=== PATIENT | male | born 1945 | race Caucasian/White ===

== ENCOUNTER 2021-03-25 14:26 | Outpatient (CLI) | payer MEDICARE, OTHER, SELFPAY | END 2021-03-25 14:27 | disposition home or self-care (01) | PROVIDERS: PCP Physician Assistant; Visit Provider Specialist | DX: L81.4 Other melanin hyperpigmentation (principal) | CPT/HCPCS: 88305; 88313; 88342 ==

== ENCOUNTER 2021-06-07 19:12 | Observation (INO) | payer MEDICARE, OTHER, SELFPAY ==
--- NOTE | ~2021-06-07 | XR_ITS ---
XR chest 1V portable 06/07/2021 19:43 Indication: Chest pain. History of atrial fibrillation. Procedure: AP portable chest Comparison: No prior studies for comparison. Findings: Cardiomegaly with mild interstitial edema. No pleural effusion. No pneumothorax. No acute o sseous abnormality. Impression: 1: Cardiomegaly with mild interstitial edema. Reviewed, dictated and finalized at location A. TENDER Impression: 1: Cardiomegaly with mild interstitial edema.
[2021-06-07 19:19] VITALS: BP 109/76; PULSE 135; RESP 24; TEMP 36.7; O2SAT 95
--- NOTE | 2021-06-07 19:32 | ECG_ITS ---
Measurements Intervals [place] Rate: 125 P: [place]: 0 QRS: -86 QRSD: 137 T: 60 QT: 350 QTc: 506 Interpretive Statements ATRIAL FIBRILLATION WITH RAPID VENTRICULAR RESPONSE RIGHT BUNDLE BRANCH BLOCK LEFT ANTERIOR FASCICULAR BLOCK BASELINE ARTIFACT- I, III, AVR, AVL, AVF, V2-V6 ABNORMAL ECG Electronically Signed On 06-08-2021 7:54:36 BOND WRITER by Andrés Yung D.O.
[2021-06-07] MEDS: dilTIAZem HCl INJ 25 MG/5 ML VIAL 20 MG IV PUSH (19:40)
[2021-06-07 19:58] LABS: Basophils Absolute Auto 0.1 K/mm3 (0.0-0.1); Basophils Percent Auto 0.8 % (0.2-1.2); Eosinophils Absolute Auto 0.2 K/mm3 (0-0.3); Eosinophils Percent Auto 1.7 % (0-4.4); Hemoglobin 16.5 g/dL (14.0-18.0); Immature Granulocyte Absolute 0.04 K/mm3 (0.00-0.031); Immature Granulocyte Percent A 0.4 % (0-0.5); Lymphocytes Absolute Auto 1.68 K/mm3 (0.9-3.2); Mean Corpuscular HGB Conc 34.4 g/dl (32-36); Mean Corpuscular Hemoglobin 31.9 pg (26-34); Mean Corpuscular Volume 92.7 fl (80-100); Mean Platelet Volume 10.7 fl (7.4-10.4); Monocytes Absolute Auto 1.8 K/mm3 (0.1-0.6); Monocytes Percent Auto 17.5 % (2.6-8.5); Neutrophils Absolute Auto 6.7 K/mm3 (1.3-6.7); Neutrophils Percent Auto 63.6 % (45.5-73.1); Platelet Count Result 211 k/mm3 (150-375); Red Blood Count 5.18 M/mm3 (4.6-6.20); Red Cell Distribution Width 13.3 % (11.5-14.5); White Blood Count 10.5 K/mm3 (4.5-10.0)
[2021-06-07 20:09] LABS: INR 2.6; Prothrombin Time 27.5 Seconds (11.1-14.7)
[2021-06-07 20:10] LABS: Alanine Aminotransferase 19 U/L (4-50); Albumin Level 3.9 g/dL (3.5-5.1); Alkaline Phosphatase 87 U/L (38-126); Anion Gap 5 mmol/L (8-16); Aspartate Amino Transferase 27 U/L (17-59); Bilirubin,Total 0.8 mg/dL (0.2-1.3); Blood Urea Nitrogen 13 mg/dL (9-20); Calcium 8.9 mg/dL (8.4-10.2); Carbon Dioxide 25 mmol/L (22-30); Chloride 103 mmol/L (98-107); Estimated CRCL calculation 104 ml/min; Estimated Glomerular Filt Rate > 60; Glucose 142 mg/dL (65-110); Potassium 3.8 mmol/L (3.4-5.0); Sodium 133 mmol/L (137-145)
[2021-06-07 20:20] VITALS: BP 118/68; PULSE 89; RESP 18; O2SAT 97
[2021-06-07 20:21] LABS: NT Pro B Type Natriuretic Pept 651 pg/mL (5-100); Troponin I < 0.012 ng/mL (0.000-0.034)
--- NOTE | 2021-06-07 22:17 | ED.GENADULT ---
HPI - General Adult General Chief complaint: Arrhythmia/Palpitations Stated complaint: dypnea, chest pain Time Seen by Provider: 06/07/21 19:14 History of Present Illness HPI narrative: Patient 75-year-old gentleman who presents emerged from wit complaint of chest pain. The patient reports he has history of A. fib and has had RVR before in the past but does not usually notice it today he has noticed has had several episodes of discomfort in his chest the patient states that he felt a little short of breath when this happened patient reports that has had no prior history of stents placed in his heart but has had atrial fibrillation has had an ablation and is currently on anticoagulants. The patient states that the symptoms or not improved by anything or they worsened by nothing. Related Data Allergies Allergy/AdvReac Type Severity Reaction Status Date / Time No Known Allergies Verified 05/13/10 09:28 Review of Systems Review of Systems: A 10 system review of systems was completed on the patient and is negative except for what is stated in the HPI. Nursing and ancillary documentation was reviewed. Exam Narrative: GENERAL: Well-appearing, well-nourished, and in no acute distress. HEAD: Normocephalic, atraumatic. EYES: PERRLA and EOMI. ENT: Nares clear, no rhinorrhea or epistaxis. Mucous membranes moist. NECK: Supple. CHEST: Clear to auscultation. No respiratory distress. HEART: Irregular rate and rhythm. No murmur heard. Normal peripheral pulses. ABDOMEN: Soft, nontender, nondistended, normal active bowel sounds. EXTREMITIES: Normal range of motion. No edema. SKIN: Warm, dry, no rash. NEURO: No focal deficits. Alert and oriented x3. PSYCH: Normal mood and affect. Course Course Emergency Course: EKG #1 atrial fibrillation with rapid ventricular response with a rate of 125 and right bundle branch block EKG #2 atrial fibrillation rate 83 right bundle branch block Vital Signs Vital signs: Vital Signs Temperature 36.7 C 06/07/21 19:19 Pulse Rate 135 H 06/07/21 19:19 Respiratory Rate 24 H 06/07/21 19:19 Blood Pressure 109/76 06/07/21 19:19 Pulse Oximetry 95 06/07/21 19:19 Temperature 36.7 C 06/07/21 19:19 Pulse Rate 89 06/07/21 20:20 Respiratory Rate 18 06/07/21 20:20 Blood Pressure 118/68 06/07/21 20:20 Pulse Oximetry 97 06/07/21 20:20 Medical Decision Making Vital Signs Vital Signs: Vital Signs Temperature 36.7 C 06/07/21 19:19 Pulse Rate 135 H 06/07/21 19:19 Respiratory Rate 24 H 06/07/21 19:19 Blood Pressure 109/76 06/07/21 19:19 Pulse Oximetry 95 06/07/21 19:19 Temperature 36.7 C 06/07/21 19:19 Pulse Rate 89 06/07/21 20:20 Respiratory Rate 18 06/07/21 20:20 Blood Pressure 118/68 06/07/21 20:20 Pulse Oximetry 97 06/07/21 20:20 Lab Data Result diagrams: 06/07/21 19:51 06/07/21 19:51 Labs: Lab Results 06/07/21 06/07/21 06/07/21 Range/Units 19:51 19:51 19:51 WBC 10.5 H (4.5-10.0) K/mm3 RBC 5.18 (4.6-6.20) M/mm3 Hgb 16.5 (14.0-18.0) g/dL Hct 48.0 (42.0-52.0) % MCV 92.7 (80-100) fl MCH 31.9 (26-34) pg MCHC 34.4 (32-36) g/dl RDW 13.3 (11.5-14.5) % Plt Count 211 (150-375) k/mm3 MPV 10.7 H (7.4-10.4) fl Immature Gran % (Auto) 0.4 (0-0.5) % Neut % (Auto) 63.6 (45.5-73.1) % Lymph % (Auto) 16.0 L (18.3-44.2) % Dougherty % (Auto) 17.5 H (2.6-8.5) % Eos % (Auto) 1.7 (0-4.4) % Baso % (Auto) 0.8 (0.2-1.2) % Lymph # (Auto) 1.68 (0.9-3.2) K/mm3 Dougherty # (Auto) 1.8 H (0.1-0.6) K/mm3 Eos # (Auto) 0.2 (0-0.3) K/mm3 Baso # (Auto) 0.1 (0.0-0.1) K/mm3 Abs Immat Gran (auto) 0.04 H (0.00-0.031) K/mm3 Absolute Neuts (auto) 6.7 (1.3-6.7) K/mm3 Absolute Nucleated RBC 0.0 (0.0-0.012) K/mm3 Nucleated RBC % 0.0 (0.0-0.2) % PT 27.5 H (11.1-14.7) Seconds INR 2.6 APTT 53.0 H (22.3-36.8) SECONDS So
[2021-06-07] MEDS: FUROSEMIDE INJ 40 MG/4 ML VIAL IV PUSH (22:48)
[2021-06-07 23:50] VITALS: BP 106/64; PULSE 87; RESP 18; O2SAT 96
[2021-06-08] VITALS (26 sets, daily range): BP systolic 133–154; BP diastolic 75–94; PULSE 78–136; RESP 16–41; TEMP 36.8; O2SAT 95–97
[2021-06-08 00:36] LABS: Troponin I < 0.012 ng/mL (0.000-0.034)
--- NOTE | 2021-06-08 02:31 | PM.IMHP ---
H&P: HPI History of Present Illness Date/Time: 06/08/21 02:31 Chief Complaint: Chest pain Narrative: The patient is a 75-year-old gentleman who came to the ER with complain of chest pain. Patient states that he was watching golf game around 9:00 p.m. when he started feeling chest pain in his left side of his chest. The pain was stabbing sharp in quality worsens with taking deep breaths associated with some shortness of breath nonradiating pain no diaphoresis. He denies any palpitations. We came to the ER for evaluation as the chest discomfort did not go way. In the ER he was evaluated with an EKG which showed atrial fibrillation with rapid ventricular rate with heart rate in 150s he was given a dose of Cardizem and the rate has been controlled ever since then. He has a history of atrial fibrillation and had ablation in the past continues to take anticoagulants. The the heart rate has been controlled he still reports that his chest pain persist. She denies any nausea vomiting abdominal pain no leg swelling did chest x-ray done in the ER reveals mild interstitial edema with cardiomegaly. He has no history of coronary artery disease in the past or congestive heart failure he had stress test done several years ago which was unremarkable per patient. His initial troponin came back negative. His admitted under observation status for further evaluation and management. Review of Systems Review of Systems: - CONSTITUTIONAL: Denies weight loss, fever and chills. - HEENT: Denies changes in vision and hearing - RESPIRATORY: Reports SOB and denies cough. - CV: Denies palpitations and reports CP. - GI: Denies abdominal pain, nausea, vomiting and diarrhea. - : Denies dysuria and urinary frequency. - MSK: Denies myalgia and joint pain. - SKIN: Denies rash and pruritus. - NEUROLOGICAL: Denies headache and syncope. - PSYCHIATRIC: Denies recent changes in mood. Denies anxiety and depression. All systems reviewed & are unremarkable except as noted in HPI and below Constitutional: Constitutional: Reports fatigue and Reports weakness Neurologic: Reports weakness Endocrine: Endocrine: Reports fatigue PMFSH Comments Past medical history: AFib, hypertension Past surgical history: Ablation Family history no family history of premature coronary artery disease Social history: No smoking alcohol illicit drug use Meds Home Medications and Allergies Allergies Allergy/AdvReac Type Severity Reaction Status Date / Time No Known Allergies Verified 05/13/10 09:28 Vital Signs Vital Signs - 24 hr 06/07/21 19:19 06/07/21 20:20 06/07/21 23:50 Temperature 98.0 F Pulse Rate 135 H 89 87 Respiratory Rate 24 H 18 18 Blood Pressure 109/76 118/68 106/64 Pulse Oximetry 95 97 96 Exam Narrative: GENERAL: Well-appearing, well-nourished, and in no acute distress. HEAD: Normocephalic, atraumatic. EYES: PERRLA and EOMI. ENT: Nares clear, no rhinorrhea or epistaxis. Mucous membranes moist. NECK: Supple. CHEST: Clear to auscultation. No respiratory distress. No chest wall tenderness HEART: Irregular rate and rhythm. No murmur heard. Normal peripheral pulses. ABDOMEN: Soft, nontender, nondistended, normal active bowel sounds. EXTREMITIES: Normal range of motion. No edema. SKIN: Warm, dry, no rash. NEURO: No focal deficits. Alert and oriented x3. PSYCH: Normal mood and affect. H&P: Results Labs Labs: Short CBC 06/07/21 Range/Units 19:51 WBC 10.5 H (4.5-10.0) K/mm3 Hgb 16.5 (14.0-18.0) g/dL Hct 48.0 (42.0-52.0) % Plt Count 211 (150-375) k/mm3 [facility] 06/07/21 19:51 Sodium 133 L Potassium 3.8 Chloride 103 Carbon Dioxide 25 BUN 13 Creatinine 0.80 Glucose 142 H Calcium 8.9 Cardiac Enzymes 06/07/21 06/07/21 Range/Units 19:51 23:00 Troponin I < 0.012 < 0.012 (0.000-0.034) ng/mL Liver Function 06/07/21 Range/Units 19:51 Total Bilirubin 0.8 (0.2-1.3) mg/dL AST 2
--- NOTE | 2021-06-08 03:27 | ECG_ITS ---
Measurements Intervals [place] Rate: 90 P: [place]: 0 QRS: -75 QRSD: 158 T: -8 QT: 387 QTc: 476 Interpretive Statements ATRIAL FIBRILLATION RIGHT BUNDLE BRANCH BLOCK LEFT ANTERIOR FASCICULAR BLOCK ABNORMAL ECG Electronically Signed On 06-08-2021 8:07:18 MOTOR VEHICLES SUPERVISOR by Andrés Yung D.O.
[2021-06-08 04:43] LABS: Basophils Absolute Auto 0.1 K/mm3 (0.0-0.1); Basophils Percent Auto 0.8 % (0.2-1.2); Eosinophils Absolute Auto 0.1 K/mm3 (0-0.3); Eosinophils Percent Auto 1.1 % (0-4.4); Hematocrit 50.5 % (42.0-52.0); Hemoglobin 17.1 g/dL (14.0-18.0); Immature Granulocyte Absolute 0.05 K/mm3 (0.00-0.031); Immature Granulocyte Percent A 0.5 % (0-0.5); Lymphocytes Absolute Auto 1.58 K/mm3 (0.9-3.2); Lymphocytes Percent Auto 14.4 % (18.3-44.2); Mean Corpuscular HGB Conc 33.9 g/dl (32-36); Mean Corpuscular Hemoglobin 32.4 pg (26-34); Mean Corpuscular Volume 95.8 fl (80-100); Mean Platelet Volume 11.2 fl (7.4-10.4); Monocytes Absolute Auto 1.9 K/mm3 (0.1-0.6); Monocytes Percent Auto 17.3 % (2.6-8.5); Neutrophils Absolute Auto 7.3 K/mm3 (1.3-6.7); Neutrophils Percent Auto 65.9 % (45.5-73.1); Platelet Count Result 217 k/mm3 (150-375); Red Blood Count 5.27 M/mm3 (4.6-6.20); Red Cell Distribution Width 13.5 % (11.5-14.5)
[2021-06-08 04:53] LABS: Alanine Aminotransferase 19 U/L (4-50); Albumin Level 3.8 g/dL (3.5-5.1); Alkaline Phosphatase 76 U/L (38-126); Anion Gap 8 mmol/L (8-16); Aspartate Amino Transferase 29 U/L (17-59); Bilirubin,Total 1.3 mg/dL (0.2-1.3); Blood Urea Nitrogen 14 mg/dL (9-20); Calcium 8.7 mg/dL (8.4-10.2); Carbon Dioxide 25 mmol/L (22-30); Chloride 103 mmol/L (98-107); Estimated CRCL calculation 93 ml/min; Estimated Glomerular Filt Rate > 60; Glucose 123 mg/dL (65-110); Potassium 3.8 mmol/L (3.4-5.0); Sodium 136 mmol/L (137-145)
[2021-06-08 04:58] LABS: INR 2.4; Prothrombin Time 25.7 Seconds (11.1-14.7)
[2021-06-08 05:04] LABS: Troponin I < 0.012 ng/mL (0.000-0.034)
--- NOTE | 2021-06-08 07:44 | PC.NURSE ---
pt denies any complaints at this time. made aware of plan of care. monitor switched to pts name and v#. waiting jayde drip from pharmacy
[2021-06-08] MEDS: ASPIRIN 81 MG CHEWABLE TABLET PO (09:22)
--- NOTE | 2021-06-08 11:28 | PC.NURSE ---
Spoke with Dr Milan. Informed that cardizem drip had not been started or needed on the two prior shifts. Pt asking for update, he has been in Afib for the last 4 years, currently rate is 98. MD aware of update, will round on patient shortly, restart home medications.
--- NOTE | 2021-06-08 11:28 | PM.IMPN ---
Progress Note: A&P Assessment and Plan (1) Atrial fibrillation with rapid ventricular response: Code(s): I48.91 - Unspecified atrial fibrillation Status: Acute Assessment and Plan: Atypical chest pain no prior history of coronary artery disease initial troponin is negative. Get serial cardiac enzyme. Fully anticoagulated with warfarin and with INR therapeutic. Unlikely to be thromboembolic event. Cardiology will be consulted in the morning for further evaluation. Patient follows Dr. Alex. Follow up Cardiology recommendation. (2) Chest pain: Qualifiers: Chest pain type: unspecified Qualified Code(s): R07.9 - Chest pain, unspecified Code(s): R07.9 - Chest pain, unspecified Status: Acute Assessment and Plan: atrial fibrillation with rapid ventricular rate received a dose of diltiazem which has controlled his heart rate. He has underlying chronic atrial fibrillation continue his regular home medication. Warfarin anticoagulation will be continued. Mild interstitial edema and chest x-ray could be due to atrial fibrillation with rapid ventricular rate. Received a dose of Lasix IV looks euvolemic on examination will continue to monitor. Check echocardiogram. (3) Hypertension: Code(s): I10 - Essential (primary) hypertension Status: Acute Assessment and Plan: # hypertension on amlodipine at home; continue metoprolol and amlodipine. Additional Plan # DVT prophylaxis on warfarin # full code status Subjective Date/time seen: 06/08/21 11:28 The patient is a 75-year-old gentleman who came to the ER with complain of chest pain. Patient states that he was watching golf game around 9:00 p.m. when he started feeling chest pain in his left side of his chest. The pain was stabbing sharp in quality worsens with taking deep breaths associated with some shortness of breath nonradiating pain no diaphoresis. He denies any palpitations. We came to the ER for evaluation as the chest discomfort did not go way. In the ER he was evaluated with an EKG which showed atrial fibrillation with rapid ventricular rate with heart rate in 150s he was given a dose of Cardizem and the rate has been controlled ever since then. He has a history of atrial fibrillation and had ablation in the past continues to take anticoagulants. The the heart rate has been controlled he still reports that his chest pain persist. She denies any nausea vomiting abdominal pain no leg swelling did chest x-ray done in the ER reveals mild interstitial edema with cardiomegaly. He has no history of coronary artery disease in the past or congestive heart failure he had stress test done several years ago which was unremarkable per patient. His initial troponin came back negative. His admitted under observation status for further evaluation and management. S: Patient examined at the bedside. Telemetry reviewed. Persistence of atrial fibrillation. Review of Systems Review of Systems: All systems reviewed & are unremarkable except as noted in HPI and below Constitutional: Constitutional: Reports fatigue and Reports weakness Neurologic: Reports weakness Endocrine: Endocrine: Reports fatigue Exam Narrative: GENERAL: Well-appearing, well-nourished, and in no acute distress. HEAD: Normocephalic, atraumatic. EYES: PERRLA and EOMI. ENT: Nares clear, no rhinorrhea or epistaxis. Mucous membranes moist. NECK: Supple. CHEST: Clear to auscultation. No respiratory distress. No chest wall tenderness HEART: Irregular rate and rhythm. No murmur heard. Normal peripheral pulses. ABDOMEN: Soft, nontender, nondistended, normal active bowel sounds. EXTREMITIES: Normal range of motion. No edema. SKIN: Warm, dry, no rash. NEURO: No focal deficits. Alert and oriented x3. PSYCH: Normal mood and affect. Objective Data Vital Signs Vital Signs: Vital Signs - 24 hr 06/07/21 19:19 06/07/21 20:20 06/07/21 23:50 Temperature 98.0
--- NOTE | 2021-06-08 11:31 | ECG_ITS ---
Measurements Intervals [place] Rate: 83 P: [place]: 0 QRS: -89 QRSD: 142 T: 10 QT: 398 QTc: 469 Interpretive Statements ATRIAL FIBRILLATION VENTRICULAR PREMATURE COMPLEX RIGHT BUNDLE BRANCH BLOCK LEFT ANTERIOR FASCICULAR BLOCK BASELINE ARTIFACT- I, III, AVR, AVL, AVF, V1-V6 ABNORMAL ECG Electronically Signed On 06-08-2021 17:16:20 SALES SOLUTIONS REPRESENTATIVE by Andrés Yung D.O.
--- NOTE | 2021-06-08 11:39 | PC.NURSE ---
Spoke with Dr Tom per request of warehouse sorter, gave update. MD to round on patient later today.
--- NOTE | 2021-06-08 12:31 | PC.NURSE ---
Called pharmacy to send medications.
--- NOTE | 2021-06-08 12:37 | PC.NURSE ---
Dr Milan at bedside
--- NOTE | 2021-06-08 12:38 | PC.NURSE ---
Pt not on diltiazem drip, aware. Order cancelled
[2021-06-08] MEDS: LEVOTHYROXINE SODIUM 75 MCG TABLET PO (12:47)
[2021-06-08] MEDS: METOPROLOL SUCCINATE EXT REL 50 MG TABCR PO (12:47)
[2021-06-08] MEDS: amLODIPine BESYLATE 5 MG TABLET PO (12:48)
--- NOTE | 2021-06-08 15:39 | PM.CNCAR ---
Assessment and Plan Additional Plan Patient with permanent atrial fibrillation with a generally controlled heart rate, compliant with his metoprolol succinate 50 mg daily, presents with AFib RVR and some chest discomfort. No ischemic changes and troponins are negative so no evidence of ACS. Chest discomfort likely secondary to AFib RVR. Unclear why the patient is AFib rate is so poorly controlled today. Perhaps the result of some congestive heart failure? Or perhaps the delete cause of his congestive heart failure? He does have mild CHF by chest x-ray and proBNP although no edema and he does not endorse any MCKAY or change in exertional tolerance recently. The patient is very eager for discharge. Heart rate is better controlled although not ideally controlled. Reasonable to go home with increased dose of metoprolol for outpatient follow-up. The patient was reluctant to take take my advice, but did agree to increase his metoprolol succinate to 100 mg daily and take furosemide 20 mg daily for 1 week. I recommended some outpatient testing (echocardiogram, home monitor) but the patient would prefer to discuss this with Dr. Herrera. I will arrange for outpatient follow up. He will get one dose of po metoprolol prior to discharge. History of Present Illness History of Present Illness Consult date/time: 06/08/21 15:39 Consult reason: chest pain and atrial fibrillation Reason For Visit: chest pain/ a fib with rvr Narrative: Mr. Andres Santiago is a 75-year-old male whom I was asked to see at the request of the ER for my advice and opinion regarding his AFib RVR, mild CHF and chest pain consultation. He is normally followed by Dr. Herrera. The patient has been in his normal state of health, and states compliance with medications. Yesterday around 3:00 p.m. he had left-sided chest discomfort, which she thought might be a pulled muscle, with some stabbing pain which waxed and waned but at some point got more intense. He called an ambulance and was brought to the emergency room. On their arrival he was complaining of 5/10 chest pain, and his heart rate was 136 (atrial fibrillation). He was given oxygen and nitroglycerin and brought to the emergency room. There he was given furosemide 40 mg IV push, Cardizem 20 mg IV push in he was on a Cardizem drip at 5 milligrams/hour. That was later discontinued when his heart rate was under better control. His chest discomfort resolved. He has had 3 negative troponins and wants to be discharged. He has had permanent atrial fibrillation for years, which has been well controlled as of his last visit with Dr. Herrera in February 2021. He has a history of hypertension and sleep apnea. He is anticoagulated with warfarin. He has no history of coronary disease or CHF. He does smoke. Review of Systems Constitutional: Constitutional: Reports fatigue (Generalized fatigue, can not do as much as he used to.) Eyes: Eyes: Reports no additional eye complaints ENT: Reports system reviewed and no additional complaints, except as documented Cardiovascular: Cardiovascular: Reports chest pain, Reports pedal edema, Reports leg edema, Denies lightheadedness and Denies palpitations Comments: Some lower extremity edema at times controlled with compression stockings. Respiratory: Respiratory: Denies dyspnea on exertion Comments: Sedentary Gastrointestinal: Gastrointestinal: Denies abdominal pain and Denies hematochezia Genitourinary: Genitourinary: Denies hematuria Musculoskeletal: Musculoskeletal: Reports no additional musculoskeletal complaints Integumentary/Breasts: Skin/Breast: Denies rash Neurologic: Denies system reviewed and no additional complaints, except as documented Psychiatric: Psychiatric: Denies no additional psychiatric complaints PMFSH Past Medical History Medical History (Updated 06/08/21 @ 16:43 by Angela Tom MD) Hypertension Permanent atrial fibrillation Sleep apnea Family Histor
--- NOTE | 2021-06-08 16:10 | PC.NURSE ---
Spoke with Dr Milan. Patient is cleared from cardiology standpoint, must follow-up outpatient, increased metoprolol and start lasix for one week. Dr Milan to discharge once recommendations from Dr Tom are entered.
--- NOTE | 2021-06-08 16:44 | PM.DS ---
DS: Admitting Diagnosis Discharge Date 06/08/2021. Admitting Diagnosis #atypical chest pain no prior history of coronary artery disease initial troponin is negative. Get serial cardiac enzyme. Fully anticoagulated with warfarin and with INR therapeutic. Unlikely to be thromboembolic event. # atrial fibrillation with rapid ventricular rate received a dose of diltiazem which has controlled his heart rate. # hypertension on amlodipine at home. # mild interstitial edema and chest x-ray could be due to atrial fibrillation with rapid ventricular rate. Received a dose of Lasix IV looks euvolemic on examination will continue to monitor. # DVT prophylaxis on warfarin # full code status DS: Discharge Diagnosis Discharge Diagnosis (1) Hypertension: Code(s): I10 - Essential (primary) hypertension Status: Acute Assessment and Plan: # hypertension on amlodipine at home; continue metoprolol and amlodipine. (2) Permanent atrial fibrillation: Code(s): I48.21 - Permanent atrial fibrillation Status: Acute (3) Atrial fibrillation with rapid ventricular response: Code(s): I48.91 - Unspecified atrial fibrillation Status: Acute Assessment and Plan: Atypical chest pain no prior history of coronary artery disease initial troponin is negative. Get serial cardiac enzyme. Fully anticoagulated with warfarin and with INR therapeutic. Unlikely to be thromboembolic event. Cardiology will be consulted in the morning for further evaluation. Patient follows Dr. Alex. Follow up Cardiology recommendation. (4) Chest pain: Qualifiers: Chest pain type: unspecified Qualified Code(s): R07.9 - Chest pain, unspecified Code(s): R07.9 - Chest pain, unspecified Status: Acute Assessment and Plan: atrial fibrillation with rapid ventricular rate received a dose of diltiazem which has controlled his heart rate. He has underlying chronic atrial fibrillation continue his regular home medication. Warfarin anticoagulation will be continued. Mild interstitial edema and chest x-ray could be due to atrial fibrillation with rapid ventricular rate. Received a dose of Lasix IV looks euvolemic on examination will continue to monitor. Check echocardiogram. DS: Summary Hospital Course Reason for hospitalization: Chest pain. Hospital Course: Please refer to admission H& P. Briefly, this is a 75-year-old gentleman who came to the ER with complain of chest pain. Patient states that he was watching golf game around 9:00 p.m. when he started feeling chest pain in his left side of his chest. The pain was stabbing sharp in quality worsens with taking deep breaths associated with some shortness of breath nonradiating pain no diaphoresis. He denies any palpitations. He came to the ER for evaluation as the chest discomfort did not go away. In the ER he was evaluated with an EKG which showed atrial fibrillation with rapid ventricular rate with heart rate in 150s he was given a dose of Cardizem and the rate has been controlled ever since then. He has a history of atrial fibrillation and had ablation in the past continues to take anticoagulants. The the heart rate has been controlled he still reports that his chest pain persist. She denies any nausea vomiting abdominal pain no leg swelling did chest x-ray done in the ER reveals mild interstitial edema with cardiomegaly. He has no history of coronary artery disease in the past or congestive heart failure he had stress test done several years ago which was unremarkable per patient. His initial troponin came back negative. His admitted under observation status for further evaluation and management. Patient was evaluated by Cardiology. Patient carries a diagnosis of permanent atrial fibrillation with a generally controlled heart rate, compliant with his metoprolol succinate 50 mg daily, presents with AFib RVR and some chest discomfort. No ischemic changes and troponins are
--- NOTE | 2021-06-08 16:53 | PM.DS ---
DS: Summary Time Spent with Patient Time attestation: Total time spent providing and/or coordinating discharge services: DS: Data Data Completed and Pending Labs on day of discharge: Labs from last 24 hours 06/08/21 06/08/21 06/08/21 04:34 04:34 04:34 WBC 11.0 H RBC 5.27 Hgb 17.1 Hct 50.5 MCV 95.8 MCH 32.4 MCHC 33.9 RDW 13.5 Plt Count 217 MPV 11.2 H Immature Gran % (Auto) 0.5 Neut % (Auto) 65.9 Lymph % (Auto) 14.4 L [place] % (Auto) 17.3 H Eos % (Auto) 1.1 Baso % (Auto) 0.8 Lymph # (Auto) 1.58 [place] # (Auto) 1.9 H Eos # (Auto) 0.1 Baso # (Auto) 0.1 Abs Immat Gran (auto) 0.05 H Absolute Neuts (auto) 7.3 H Absolute Nucleated RBC 0.0 Nucleated RBC % 0.0 PT 25.7 H INR 2.4 APTT Sodium 136 L Potassium 3.8 Chloride 103 Carbon Dioxide 25 Anion Gap 8 BUN 14 Creatinine 0.90 Estim Creat Clear Calc 93 Estimated GFR > 60 Glucose 123 H Calcium 8.7 Magnesium Total Bilirubin 1.3 AST 29 ALT 19 Alkaline Phosphatase 76 Troponin I < 0.012 NT-Pro-B Natriuret Pep Total Protein 7.0 Albumin 3.8 TSH (Reflex) 06/07/21 06/07/21 06/07/21 23:00 23:00 23:00 WBC RBC Hgb Hct MCV MCH MCHC RDW Plt Count MPV Immature Gran % (Auto) Neut % (Auto) Lymph % (Auto) [place] % (Auto) Eos % (Auto) Baso % (Auto) Lymph # (Auto) [place] # (Auto) Eos # (Auto) Baso # (Auto) Abs Immat Gran (auto) Absolute Neuts (auto) Absolute Nucleated RBC Nucleated RBC % PT INR APTT Sodium Potassium Chloride Carbon Dioxide Anion Gap BUN Creatinine Estim Creat Clear Calc Estimated GFR Glucose Calcium Magnesium 2.0 Total Bilirubin AST ALT Alkaline Phosphatase Troponin I < 0.012 NT-Pro-B Natriuret Pep Total Protein Albumin TSH (Reflex) 1.510 06/07/21 06/07/21 06/07/21 19:51 19:51 19:51 WBC 10.5 H RBC 5.18 Hgb 16.5 Hct 48.0 MCV 92.7 MCH 31.9 MCHC 34.4 RDW 13.3 Plt Count 211 MPV 10.7 H Immature Gran % (Auto) 0.4 Neut % (Auto) 63.6 Lymph % (Auto) 16.0 L [place] % (Auto) 17.5 H Eos % (Auto) 1.7 Baso % (Auto) 0.8 Lymph # (Auto) 1.68 [place] # (Auto) 1.8 H Eos # (Auto) 0.2 Baso # (Auto) 0.1 Abs Immat Gran (auto) 0.04 H Absolute Neuts (auto) 6.7 Absolute Nucleated RBC 0.0 Nucleated RBC % 0.0 PT 27.5 H INR 2.6 APTT 53.0 H Sodium 133 L Potassium 3.8 Chloride 103 Carbon Dioxide 25 Anion Gap 5 L BUN 13 Creatinine 0.80 Estim Creat Clear Calc 104 Estimated GFR > 60 Glucose 142 H Calcium 8.9 Magnesium Total Bilirubin 0.8 AST 27 ALT 19 Alkaline Phosphatase 87 Troponin I < 0.012 NT-Pro-B Natriuret Pep 651 H Total Protein 7.0 Albumin 3.9 TSH (Reflex) Discharge Plan Discharge Attending physician on discharge: Kelly Milan Consulting providers: Angela Tom Discharging Clinician: Kelly Milan Anticipated Discharge Date/Time: 06/08/21 17:00 Patient Disposition: Home, Self-Care Activity: may shower Diet: heart healthy Discharge Instructions: Your atrial fibrillation rate is not well controlled. I recommend increasing metoprolol from 50 mg once daily to: 100 mg daily. In addition you were found to have some mild congestive heart failure. Add a diuretic, furosemide, 20 mg daily for [address] Tom will review w/ Dr. Herrera. He may recommend further evaluation. Call if you have questions or problems! [phone] Patient Instructions: A-fib (Atrial Fibrillation) (DC) Stand Alone Forms: General Discharge Information Follow-up/Referrals: Matthieu Herrera MD [Physician] - 1 Week Menossi,NASEEM Zarco [Primary Care Provider] - 4 Weeks Discharge Medications
== END 2021-06-08 17:45 | disposition home or self-care (01) ==
LOC: ANHED 22:20 → ANHICU 06-08 16:44 → ANH3MEDSUR 06-10 12:45
PROVIDERS: Admitting Provider Internal Medicine; Emergency Provider Emergency Medicine; PCP Physician Assistant; Visit Provider Internal Medicine
DX: I48.91 Unspecified atrial fibrillation (principal); R07.89 Other chest pain; I11.0 Hypertensive heart disease with heart failure; I50.9 Heart failure, unspecified; R06.02 Shortness of breath; Z79.01 Long term (current) use of anticoagulants; F17.210 Nicotine dependence, cigarettes, uncomplicated
CPT/HCPCS: 36415; 71045; 80053; 83735; 83880; 84443; 84484; 85025; 85610; 85730; 93005; 96374; 96375; 99285; A9270; G0378; J1940

== ENCOUNTER 2021-06-19 08:36 | Emergency (ER) | payer MEDICARE, OTHER, SELFPAY ==
[2021-06-19] VITALS (27 sets, daily range): BP systolic 110–153; BP diastolic 79–104; PULSE 88–132; RESP 14–37; TEMP 36.4; O2SAT 90–98
--- NOTE | ~2021-06-19 | XR_ITS ---
EXAMINATION: XR chest 2V DATE: 06/19/2021 11:02 INDICATION: Chest pain. TECHNIQUE: Frontal and lateral views of the chest were obtained. COMPARISON: Chest single view 06/07/2021 FINDINGS: There is a moderate-sized left pleural effusion. There are airspace opacities in left mid a nd lower lung zones. A calcified right lung nodule is consistent with old granulomatous disease. No p neumothorax. Cardiomegaly is noted. There is mild elevation of left hemidiaphragm. IMPRESSION: 1. New moderate-sized left pleural effusion. 2. Worsened airspace opacities in left mid and lower lung zones, consistent with atelectasis versus p neumonia. 3. Cardiomegaly. Reviewed, dictated and finalized at location B. [employer] SALES CONSULTANT IMPRESSION: 1. New moderate-sized left pleural effusion. 2. Worsened airspace opacities in left mid and lower lung zones, consistent wit h atelectasis versus pneumonia. 3. Cardiomegaly.
--- NOTE | ~2021-06-19 | CT_ITS ---
EXAMINATION: CT diagnostic chest w con EXAM DATE: 06/19/2021 14:01 INDICATION: Chest pain. Abnormal chest x-ray. TECHNIQUE: Spiral CT of the chest following intravenous injection of 75 mL Omnipaque 350. Axial, cor onal and sagittal images of the chest were reviewed. Coronal maximum intensity pixel images of chest reviewed. The dose-length product (DLP) for this examination was 658.73 mGy-cm. The exposure was t ailored according to patient size (auto mA exposure control), and iterative reconstruction (ASIR) was used as additional dose reduction technique. Correlation is made to chest x-ray same date. FINDINGS: There is cardiomegaly. Mildly dilated pulmonary arteries could indicate pulmonary arterial hypertension. No filling defects identified within these. Small pericardial effusion, moderate left a nd small right pleural effusions. There is pleural effusion which appears to be loculated in the left major fissure which likely accounts for some of the chest x-ray abnormality. There is multi segmenta l left lower lobe, segmental right lower lobe compressive atelectasis. Mild emphysema. No pneumothor ax or mediastinal lymphadenopathy. Multiple right renal lesions consistent with cysts. Cholecystectom y clips. Duodenal diverticulum. Mild T11 chronic compression fracture. IMPRESSION: 1. Moderate partially loculated left, small right pleural effusions with adjacent compressive atelec tasis. 2. Cardiomegaly, small pericardial effusion. 3. Mild emphysema. Reviewed, dictated and finalized at location A. CAL RESEARCH SCIENTIST IMPRESSION: 1. Moderate partially loculated left, small right pleural effusions with adjac ent compressive atelectasis. 2. Cardiomegaly, small pericardial effusion. 3. Mild emphysema.
--- NOTE | 2021-06-19 08:52 | ECG_ITS ---
Measurements Intervals [place] Rate: 126 P: [place]: 0 QRS: -68 QRSD: 153 T: 31 QT: 350 QTc: 507 Interpretive Statements ATRIAL FIBRILLATION WITH RAPID VENTRICULAR RESPONSE RIGHT BUNDLE BRANCH BLOCK LOW VOLTAGE- PRECORDIAL LEADS INFERIOR INFARCT, AGE INDETERMINATE BASELINE ARTIFACT- II, III, AVR, AVF, V1, V3-V6 ABNORMAL ECG Electronically Signed On 06-19-2021 15:51:13 [employer]LE [employer]ER by Andrés Yung D.O.
[2021-06-19 09:08] LABS: Basophils Absolute Auto 0.1 K/mm3 (0.0-0.1); Basophils Percent Auto 0.7 % (0.2-1.2); Eosinophils Absolute Auto 0.1 K/mm3 (0-0.3); Eosinophils Percent Auto 0.7 % (0-4.4); Hematocrit 47.7 % (42.0-52.0); Hemoglobin 16.1 g/dL (14.0-18.0); Immature Granulocyte Absolute 0.23 K/mm3 (0.00-0.031); Immature Granulocyte Percent A 2.1 % (0-0.5); Lymphocytes Absolute Auto 1.21 K/mm3 (0.9-3.2); Lymphocytes Percent Auto 11.3 % (18.3-44.2); Mean Corpuscular HGB Conc 33.8 g/dl (32-36); Mean Corpuscular Hemoglobin 31.6 pg (26-34); Mean Corpuscular Volume 93.7 fl (80-100); Mean Platelet Volume 10.2 fl (7.4-10.4); Monocytes Absolute Auto 1.3 K/mm3 (0.1-0.6); Neutrophils Absolute Auto 7.9 K/mm3 (1.3-6.7); Neutrophils Percent Auto 73.2 % (45.5-73.1); Platelet Count Result 462 k/mm3 (150-375); Red Blood Count 5.09 M/mm3 (4.6-6.20); Red Cell Distribution Width 13.8 % (11.5-14.5); White Blood Count 10.7 K/mm3 (4.5-10.0)
[2021-06-19 09:18] LABS: Prothrombin Time 51.3 Seconds (11.1-14.7)
[2021-06-19 09:19] LABS: Anion Gap 6 mmol/L (8-16); Blood Urea Nitrogen 31 mg/dL (9-20); Calcium 8.9 mg/dL (8.4-10.2); Carbon Dioxide 24 mmol/L (22-30); Chloride 100 mmol/L (98-107); Estimated CRCL calculation 95 ml/min; Estimated Glomerular Filt Rate > 60; Glucose 152 mg/dL (65-110); Potassium 4.4 mmol/L (3.4-5.0); Sodium 130 mmol/L (137-145)
--- NOTE | 2021-06-19 11:03 | PC.NURSE ---
pt. to XR
[2021-06-19 13:15] LABS: Troponin I < 0.012 ng/mL (0.000-0.034)
--- NOTE | 2021-06-19 13:41 | PM.CNCAR ---
Assessment and Plan Additional Plan - atrial fibrillation with RVR - a new left pleural effusion. - supra therapeutic INR - red urine this 75-year-old patient with past history of chronic atrial fibrillation on warfarin who has not been feeling well for the last couple weeks with complaints of generalized fatigue, left upper quadrant abdominal pain, joint pains and abnormal gait and decreased appetite. He was found to be in AFib with RVR. He was here in our emergency room 2 weeks ago for AFib with RVR and at that time metoprolol was increased from 50-100 mg daily. On investigations he does have a new left pleural effusion. - Suggest we obtain CT scan without contrast to rule out pneumonia specially that there is leukocytosis and pain in the left upper quadrant. - hold warfarin. - obtain urine analysis because of dark urine. BUN to creatinine ratio is elevated. Could he be dehydrated? or there is something else in the urine/ - add diltiazem 30 mg Q 8 hours to optimize heart rate control. suggest that we discontinue amlodipine. we will continue Toprol-XL 100 mg daily. History of Present Illness History of Present Illness Consult date/time: Date of [id number]/30/21 13:41 Requesting physician: Shalom Delatorre MD Consult reason: atrial fibrillation Reason For Visit: CP Narrative: 75-year-old patient who follows up with Dr. gomes. past medical history of chronic atrial fibrillation on warfarin, hypothyroidism and hypertension. Apparently was seen in our ER a couple weeks ago for AFib with RVR and chest pains. At that time he will was eager to go home and his metoprolol was increased from 50-100 mg daily. he stated that in the past cardioversion was done but failed. He states that he comes back here because he is not feeling well. He does have generalized aches, pain in the left upper quadrant, the pain in the right shoulder, and he feels that there is something not right. He denies cough or fever or chills. Denies chest pain today. Admits to increasing shortness of breath. Denies any limb edema, dizziness or syncope. he is currently in AFib with elevated heart rate in the 120 beats per minute. And when he is resting it is about 110 beats per minute. his states that he is not walking right. He is walking slowly. His urine appears very dark INR was elevated at 6. evidence of leukocytosis with white cell count 10.7 with left shift. chest x-ray reviewed and asthma self shows mild congestion a new left pleural effusion. EKG reviewed and was massive shows AFib with RVR, inferior Q-waves, right bundle branch block Review of Systems Constitutional: Constitutional: Denies chills, Reports fatigue, Denies fever(s), Reports lethargy, Reports malaise, Reports poor appetite and Reports weakness Eyes: Eyes: Denies eye discharge, Denies loss of vision, Denies eye pain and Denies photophobia ENT: Denies dizziness, Denies epistaxis, Denies nasal congestion and Denies sore throat Cardiovascular: Cardiovascular: Denies chest pain, Denies syncope, Denies pedal edema, Denies leg edema, Denies palpitations, Reports dyspnea, Reports dyspnea on exertion and Denies orthopnea Respiratory: Respiratory: Denies cough, Denies dyspnea, Reports dyspnea on exertion and Denies wheezing Gastrointestinal: Gastrointestinal: Reports abdominal pain ( Pain in the left upper quadrant), Denies diarrhea, Denies nausea and Denies vomiting Genitourinary: Genitourinary: Denies hematuria, Denies genital lesions and Denies dysuria Musculoskeletal: Musculoskeletal: Reports arthralgias ( pain right shoulder), Denies joint swelling and Denies numbness Integumentary/Breasts: Skin/Breast: Denies pruritus and Denies rash Neurologic: Denies dizziness, Denies syncope, Denies loss of vision and Denies numbness Psychiatric: Psychiatric: Denies anxiety and Denies depression Endocrine: Endocrine: Denies cold intolerance, Denies heat intolerance and Den
[2021-06-19] MEDS: dilTIAZem HCL 30 MG TABLET PO (14:25)
[2021-06-19 14:55] LABS: Add Urine Microscopic? YES; Appearance Urine Clear (Clear); Bilirubin Urine Negative (Negative); Blood Urine Negative (Negative); Color Urine Amber (Yellow); Glucose Urine UA Negative (Negative); Ketones Urine Negative (Negative); Leukocyte Esterase Ur Negative LEU/UL (Negative); Mucus Urine Rare /lpf; Nitrate Urine Negative (Negative); Protein Urine Negative (Negative); RBC Urine 0-2 /hpf (0-2); Specific Grav Ur 1.014 (1.001-1.035); WBC Urine 0-3 /hpf
--- NOTE | 2021-06-19 16:08 | ED.CHESTPAIN ---
HPI - Chest Pain General Chief Complaint: Chest Pain Stated Complaint: CP Time Seen by Provider: 06/19/21 08:40 Source: patient and family Mode of arrival: ambulatory Limitations: no limitations History of Present Illness HPI narrative: 75-year-old with a history of A. fib on warfarin here with complaints of left upper quadrant and left lower intercostal pain, she states that his pain radiates all over his chest. Patient states that he was seen in the emergency room for the same. He was discharged home. Patient states that he has been getting intermittent pain for past 2 weeks on and off. Patient states he is called Dr. Herrera prior to coming to the ER. He presently states he has having pain in his right upper part of his chest. He denies any shortness of breath. No history of nausea or vomiting or abdominal pain. He also states his INR is elevated. complaint: chest pain Pertinent past history: other (Atrial fibrillation) Onset (ago): week(s) (2) Timing of current episode: episodic Prior episodes: Yes Pain location: left chest Severity: mild Quality: aching Relieving factors: nothing Exacerbating factors: nothing Related Data Home Medications Medication Instructions Recorded Confirmed amlodipine 5 mg PO DAILY 06/08/21 levothyroxine [Synthroid] 75 mcg PO DAILY 06/08/21 warfarin 2.5 mg PO DAILY 06/08/21 warfarin 5 mg PO DAILY 06/08/21 Allergies Allergy/AdvReac Type Severity Reaction Status Date / Time No Known Allergies Verified 06/19/21 08:51 Review of Systems Review of Systems: All systems reviewed & are unremarkable except as noted in HPI and below Constitutional: Constitutional: Reports no additional constitutional complaints Eyes: Eyes: Reports no additional eye complaints ENT: Reports system reviewed and no additional complaints, except as documented Cardiovascular: Cardiovascular: Reports as per HPI Respiratory: Respiratory: Reports no additional respiratory complaints Gastrointestinal: Gastrointestinal: Reports no additional gastrointestinal complaints Musculoskeletal: Musculoskeletal: Reports no additional musculoskeletal complaints Integumentary/Breasts: Skin/Breast: Reports system reviewed and no additional complaints, except as docu Neurologic: Reports system reviewed and no additional complaints, except as documented [facility] Past Medical History Medical History Hypertension Permanent atrial fibrillation Sleep apnea Family History Family History Other No evidence of atrial fibrillation Social History Social History Social History: , employed, smokes Smoking status: Current every day smoker Exam Narrative: GENERAL: Well-appearing, well-nourished, and in no acute distress. HEAD: Normocephalic, atraumatic. EYES: PERRLA and EOMI. NECK: Supple. CHEST: Clear to auscultation. No respiratory distress. HEART: Irregularly irregular tachycardic at times. ABDOMEN: Soft, nontender, nondistended, normal active bowel sounds. EXTREMITIES: Normal range of motion. No edema. SKIN: Warm, dry, no rash. NEURO: No focal deficits. Alert and oriented x3. PSYCH: Normal mood and affect. Course Course Emergency Course: Inform patient about his lab work. Consulted cardiology 4 hours here to see the patient at bedside. Recommended CT of the chest which showed mild pleural effusion on both sides but no evidence of pneumonia. Recommended him to start diltiazem 30 mg 3 times a day. Patient declined admission and wants to follow-up with Dr. Alex on outpatient basis. Vital Signs Vital signs: Vital Signs Temperature 36.4 C L 06/19/21 08:41 Pulse Rate 129 H 06/19/21 08:41 Respiratory Rate 33 H 06/19/21 08:41 Blood Pressure 140/97 H 06/19/21 08:41 Pulse Oximetry 95 06/19/21 08:41 Temperature 36.4 C
== END 2021-06-19 16:30 | disposition home or self-care (01) ==
PROVIDERS: Internal Medicine Cardiovascular Disease; Emergency Provider Family Medicine; PCP Physician Assistant
DX: I48.21 Permanent atrial fibrillation (principal); J90 Pleural effusion, not elsewhere classified; R79.1 Abnormal coagulation profile; R82.998 Other abnormal findings in urine; I10 Essential (primary) hypertension; E03.9 Hypothyroidism, unspecified; G47.30 Sleep apnea, unspecified; Z79.01 Long term (current) use of anticoagulants; F17.200 Nicotine dependence, unspecified, uncomplicated; I45.10 Unspecified right bundle-branch block; R94.31 Abnormal electrocardiogram [ECG] [EKG]; I51.7 Cardiomegaly; J43.9 Emphysema, unspecified
CPT/HCPCS: 36415; 71046; 71260; 80048; 81001; 84484; 85025; 85610; 87086; 87088; 93005; 99284; A9270; Q9967

== ENCOUNTER 2022-05-07 08:34 | Outpatient (CLI) | payer MEDICARE, OTHER, SELFPAY | END 2022-05-07 08:35 | disposition home or self-care (01) | PROVIDERS: PCP Physician Assistant; Visit Provider Specialist | DX: L57.0 Actinic keratosis (principal) | CPT/HCPCS: 88305 ==

== ENCOUNTER 2022-12-31 02:44 | Day surgery (SDC) | payer MEDICARE, OTHER, SELFPAY ==
[2022-12-18 13:43] VITALS: BMI 33.9
[2022-12-31 08:16] VITALS: BP 144/82; PULSE 79; RESP 19; TEMP 36.2; O2SAT 98
--- NOTE | 2022-12-31 08:26 | P.PNAN_ITS ---
Anes - Initial Pre Proc Eval Procedure: Operation Date: 12/31/22 09:00 Proposed Procedures p Colonoscopy - Branden Faustin MD Date/Time: 12/31/22 08:26 Surgeon: Branden Faustin MD Pre Op Diagnosis: Abnormal findings on diagnostic imaging Patient Data Age: 77 Gender: M Height: 1.83 m Weight: 112.3 kg Last Vital Signs Temp 97.1 F L 12/31/22 08:16 Pulse 79 12/31/22 08:16 Resp 19 12/31/22 08:16 BP 144/82 H 12/31/22 08:16 Pulse Ox 98 12/31/22 08:16 O2 Del Method Room Air 12/31/22 08:16 Allergies Allergy/AdvReac Type Severity Reaction Status Date / Time No Known Allergies Verified 12/31/22 08:14 Home Medications Medication Instructions Recorded Confirmed Type levothyroxine 75 mcg tablet 75 mcg PO DAILY 06/08/21 12/18/22 History (Synthroid) metoprolol succinate 100 mg 100 mg PO DAILY #30 tabs 06/08/21 12/18/22 Rx tablet,extended release 24 hr warfarin 2.5 mg tablet 2.5 mg PO 2XW 06/08/21 12/18/22 History warfarin 5 mg tablet 5 mg PO 5XW 06/08/21 12/18/22 History diltiazem HCl 120 mg 120 mg PO DAILY 12/18/22 12/18/22 History capsule,extended release 24 hr, controlled Patient hx anesthesia problems: none Family hx anesthesia problems: none Results Review: All pre-operative results and documents have been reviewed as part of the pre- operative evaluation. [facility] Past Medical History Medical History Hypertension Permanent atrial fibrillation Sleep apnea Family History Family History Other No evidence of atrial fibrillation Social History Social History Social History: , employed, smokes Years smoked: 60 Smoking status: Current every day smoker Tobacco type: cigarettes Alcohol intake: former Alcohol use details: 1988 Substance use type: does not use Living arrangements: with family Spiritual care concerns: No Anes - Eval Final PreProcedure Day of Procedure 12/31/22 08:26 Patient weight: normal Heart: irregular rhythm Lungs: clear to auscultation Airway: Mallampati scale class II Neurological: alert and oriented Last oral intake: >/= 8 hours ASA classification: III Emergent: no Anesthetic plan: proceed Anesthesia type and monitoring: general GIVS and standard monitoring Results Review: All pre-operative results and documents have been reviewed as part of the pre- operative evaluation. Informed Consent: The patient's anesthetic plan and its attendant risks and benefits were discussed with the patient/family/POA. Questions were solicited and answers provided to the satisfaction of the patient/family/POA.
[2022-12-31] MEDS: LACTATED RINGERS 1,000 ML 150 ML IV CONT (08:30)
--- NOTE | 2022-12-31 08:40 | P.HP_ITS ---
History of Present Illness History of Present Illness Consent: Risks, benefits, and alternatives have been discussed and questions answered. Patient agrees to proceed with procedure. Chief complaint: Abnormal findings on diagnostic imaging Narrative: Andres Santiago is a 77 year old male Presents for colonoscopy. Patient states recent CT scan was performed apparently to check on his blood vessels. It was found to have thickening in the sigmoid colon and for this reason patient referred for colonoscopy. Patient reports his weight appetite and bowel movements are normal. Cologuard test 1 year ago was unremarkable and normal. Family history noncontributory. Review of Systems Review of Systems: Review of systems noncontributory. [facility] Past Medical History Medical History Hypertension Permanent atrial fibrillation Sleep apnea Family History Family History Other No evidence of atrial fibrillation Social History Social History Social History: , employed, smokes Years smoked: 60 Smoking status: Current every day smoker Tobacco type: cigarettes Alcohol intake: former Alcohol use details: quit 1988 Substance use type: does not use Living arrangements: with family Spiritual care concerns: No Meds Home Medications and Allergies Home Medications Medication Instructions Recorded Confirmed Type levothyroxine 75 mcg tablet 75 mcg PO DAILY 06/08/21 12/18/22 History (Synthroid) metoprolol succinate 100 mg 100 mg PO DAILY #30 tabs 06/08/21 12/18/22 Rx tablet,extended release 24 hr warfarin 2.5 mg tablet 2.5 mg PO 2XW 06/08/21 12/18/22 History warfarin 5 mg tablet 5 mg PO 5XW 06/08/21 12/18/22 History diltiazem HCl 120 mg 120 mg PO DAILY 12/18/22 12/18/22 History capsule,extended release 24 hr, controlled Allergies Allergy/AdvReac Type Severity Reaction Status Date / Time No Known Allergies Verified 12/31/22 08:14 Vital Signs Vital Signs - 24 hr 12/31/22 08:16 Temperature 97.1 F L Pulse Rate 79 Respiratory Rate 19 Blood Pressure 144/82 H Pulse Oximetry 98 Oxygen Delivery Room Air Exam Narrative: Physical exam reveals patient to be alert. Vital signs stable. HEENT exam is unremarkable. Patient is anicteric. Lungs are clear to auscultation and percussion. Heart is without murmur or extra sounds. Abdomen bowel sounds present soft nontender with no organomegaly. Digital external rectal exam is normal. Assessment and Plan Assessment and plan (1) Abnormal CT scan: Code(s): R93.89 - Abnormal findings on diagnostic imaging of other specified body structures Status: Acute Assessment and Plan: Patient with a CT scan suggesting he might have thickening in the sigmoid colon for this reason colonoscopy requested will be performed. Patient has no overt symptoms. Recent Cologuard test negative. Further recommendations may be given after endoscopy.
[2022-12-31 09:03] LABS: INR 1.3; Prothrombin Time 17.4 Seconds (11.1-14.7)
[2022-12-31] MEDS: SIMETHICONE ORAL SUSPENSION 20 MG/0.3 ML 30 ML BOTTLE 0.6 ML IRRIGATION (09:32)
[2022-12-31 09:40] VITALS: BP 126/72; PULSE 71; RESP 16; O2SAT 97
[2022-12-31 09:50] VITALS: BP 132/77; PULSE 76; RESP 16; O2SAT 97
[2022-12-31 10:00] VITALS: BP 143/87; PULSE 71; RESP 16; O2SAT 100
== END 2022-12-31 10:10 | disposition home or self-care (01) ==
PROVIDERS: PCP Physician Assistant; Visit Provider Internal Medicine Gastroenterology
PROC: 0DJD8ZZ Inspection of Lower Intestinal Tract, Via Natural or Artificial Opening Endoscopic (ICD-10-PCS; CPT 45378; principal; 2022-12-31 09:00)
DX: D12.2 Benign neoplasm of ascending colon (principal); K64.8 Other hemorrhoids; K57.30 Diverticulosis of large intestine without perforation or abscess without bleeding; I48.21 Permanent atrial fibrillation; G47.30 Sleep apnea, unspecified; I10 Essential (primary) hypertension; F17.210 Nicotine dependence, cigarettes, uncomplicated; Z79.01 Long term (current) use of anticoagulants
CPT/HCPCS: 45385; 36415; 85610; 88305; J2704; J7120

== ENCOUNTER 2023-08-10 08:50 | Outpatient (CLI) | payer MEDICARE, OTHER, SELFPAY | END 2023-08-10 08:51 | disposition home or self-care (01) | LOC: CHSLAB 08:53 | PROVIDERS: PCP Physician Assistant; Visit Provider Specialist | DX: L72.0 Epidermal cyst (principal) | CPT/HCPCS: 88304; 88305 ==

== ENCOUNTER 2024-07-26 06:42 | Outpatient (CLI) | payer MEDICARE, OTHER, SELFPAY ==
--- NOTE | ~2024-07-26 | CT_ITS ---
CT Scan of the Chest without Contrast: Clinical Indication: Lung cancer screening, nicotine dependence Technique: Contiguous sections were acquired throughout the chest without intravenous contrast. Dose reduction technique was used on this scan by utilizing automated exposure control and iterative recon struction technique. The dose-length product (DLP) was 177.21 mGy-cm. COMPARISON: 06/19/2021 Findings: There is no evidence of any significant mediastinal, hilar or axillary lymphadenopathy. Extensive cor onary artery calcification present. There is no evidence of pleural or pericardial effusion. Minimal peripheral chronic interstitial changes are noted. Stable 3 mm peripheral left upper lobe pul monary nodules (axial images 63, 65).. Images through the upper abdomen reveal no abnormalities. Impression: Lung RADS 2: Benign appearance. 12 month follow-up screening CT advised. Reviewed, dictated and finalized at [facility]. OR SPEECH PATHOLOGIST Impression: Lung RADS 2: Benign appearance. 12 month follow-up screening CT advised.
--- OUTSIDE RECORDS SUMMARY | 2024-07-26 06:45 | XMS_ITS | Data Portability ---
[facility] Organization [facility] [address] [facility] [place] [address] Care Team Providers Care Tab Builder Name Role Phone MARIE BENEDICT Primary Care Provider Unavailab le Assessment Encounter Date Assessment Date Assessment LastModified by Organization Details LastModified Time 05/30/2024 05/30/2024 Tyrese's labs show his thyroid levels are normal, metabolic panel is stable with a sugar of 118 that is slightly elevated if he was fasting. His liver function is normal, B12 and folic acid are normal in his diabetes screening test is 5.9% indicating prediabetes is present. CBC blood counts are normal. Not available 05/30/2024 09:25:27 Plan of Treatment Reminders Order Date Submit Date Provider Last Modified By Organization Details Last Modified Time Details Appointments ANY 15 2024 08:00A BRITTANY Machuca Not available Not available Not available Lab HbA1c (hemoglob in A1c), blood 2023 024 [email or web address] Not available 05/30/2024 09:08:59 PT/INR 2023 024 [email or web address] Not available 02/16/2024 10:06:47 PT/INR 2023 024 DONELL Not available 12/30/2023 13:13:23 PT/INR 2023 024 DONELL Not available 01/06/2024 13:26:01 PT/INR 2023 024 DONELL Not available 02/09/2024 14:25:30 PT/INR 2023 024 [email or web address] Not available 02/16/2024 10:07:00 PT/INR 2023 024 [email or web address] Not available 02/16/2024 10:07:05 BMP, serum or plasma 2023 024 [email or web address] Not available 05/30/2024 09:08:18 CBC w/ auto diff 2023 024 [email or web address] Not available 05/30/2024 09:08:28 hepatic function panel, serum 2023 024 [email or web address] Not available 05/30/2024 09:08:38 vitamin B12 + folate, serum or blood 2023 024 [email or web address] Not available 05/30/2024 09:08:47 TSH + free T4, serum 2023 024 [email or web address] Not available 05/30/2024 09:07:58 HbA1c (hemoglob in A1c), blood 2023 025 [email or web address] [facility], [address], [place], [address], 05/30/2024 09:43:51 BMP, serum or plasma 2023 025 [email or web address] [facility], [address], [place], [address], 05/30/2024 09:43:51 CBC w/ auto diff 2023 025 [email or web address] [facility], [address], [place], [address], 05/30/2024 09:43:51 hepatic function panel, serum 2023 025 [email or web address] [facility], [address], [place], [address], 05/30/2024 09:43:51 vitamin B12 + folate, serum or blood 2023 025 [email or web address] [facility], [address], [place], [address], 05/30/2024 09:43:51 TSH + free T4, serum 2023 025 [email or web address] [facility], [address], [place], [address], 05/30/2024 09:43:51 Referral None recorded. Procedures upper endoscopy procedure (EGD) (PROC) [address] [facility], [address], [id number], [place], [address], 07/12/2024 14:22:39 Surgeries None recorded. Imaging LDCT, chest, for lung cancer screening [address] (Imaging), [address], [place], [address], 07/20/2024 15:47:03 Medication Orders None recorded. Patient TargetsNo targets recorded. Patient Instructions Encounter Date Encounter Id Patient Instructions Last Modified By Organization Details Last Modified Time 12/03/2023 [id number] A healthy lifestyle: care instructions Not available 12/23/2023 17:30:54 05/30/2024 [id number] A healthy lifestyle: care instructions Not available 05/30/2024 09:43:51 Reason for Referral None Reported. Results Created Date Observation Date Name Description Value Unit Range Abnormal Flag Note LastModifiedBy Organization Detail LastModifiedTime Result Notes None recorded. Problems Name Problem SNOMED Code Status Onset Date Resolution Date Notes Provider Name and Address Organization Details Recorded Time Blood coagulation disorder 71946664 Active 2023 Ellen [place], [place] - [facility] 10:51:57 Hypothyroid ism 53016114 Active 2023 [place] [facility] 4 10:07:14 Obstructive sleep apnea syndrome 26064080 Active 2023 [place] [facility] 4 10:07:21 Benign essential hypertensio n 6434616 Active 2023 Ellen Strauss [place] [facility] 4 10:07:28 Chronic atrial fibrillatio n 622730801 Active 2023 [place] Stra[place] [facility] 4 10:07:38 Pulmonary emphysema 70245337 Active 2023 [place] [facility] 4 10:07:47 Impaired glucose tolerance 2362335 Active 2023 [place] [facility] 4 10:07:55 Hyperglycem ia 79706217 Active 2023 [place] [facility] 4 10:08:02 Aortic aneurysm screening abnormal 746866483 Active 2022 [place] [facility] 4 10:08:54 Anticoagula nt therapy Active 2023 [place] [facility] 4 10:09:08 Kidney lesion 5090618262057 0 Active 2023 [place] [facility] 4 10:09:24 Long-term current use of anticoagula nt 746662294 Active 2023 BRITTANY Barclay Attn: Kevin chand,[address] [place], [address], [place] - [facility] 4 10:17:44 Long-term drug therapy Active 2023 BRITTANY Barclay Attn: Kevin chand,[address] [place], [address], [place] [facility] 4 10:17:45 Body mass index 30+ - obesity 695716759 Active 2023 BRITTANY Barclay Attn: Kevin chand,[address] [place], [address], [place] [facility] 4 17:30:49 Obesity 221057619 Active 2023 BRITTANY Barclay Attn: Kevin chand,[address] [facility], [place], [address], [place] [facility] 4 17:30:50 Tobacco user 282278700 Active 2023 BRITTANY Barclay Attn: Kevin chand,[address] [facility], [place], [address], [place] - [facility] 4 09:19:10 Problem Notes None recorded. Procedures Surgical History Date Name Laterality Status Provider Name and Address Organization Details Recorded Time 01/01/20 colonoscopy completed Ellen [facility] 09/27/2023 10:14:30 05/14/20 [facility] 10:12:13 06/21/18 [facility] 10:12:26 06/21/18 [facility] 09/27/2023 10:12:36 Imaging Results None recorded. Procedure Notes None recorded. Medical Equipment None Reported. Allergies No known drug allergies Medications Name Sig Start Date Stop Date Status Note LastModified by Organization Details LastModified Time metoprolo l succinate ER 100 mg tablet,ex tended release 24 hr Take 1 tablet every day by oral route for 90 days. active Not Available Not Available No t Available warfarin 4 mg tablet TAKE 1 TABLET BY MOUTH EVERY DAY DIRECTED 02/15 donna Leyva stopped 01/2024 Not Available Not Available Not Available levothyro xine 75 mcg tablet Take 1 tablet every day by oral route for 90 days. active Not Available Not Available No t Available warfarin 5 mg tablet TAKE ONE TABLET BY MOUTH ONCE DAILY OR DIRECTED BASED ON INR READING 02/15 donna Leyva stopped 01/2024 Not Available Not Available Not Available diltiazem ER (XR/XT) 120 mg capsule,e xtended release 24 hr, controlle d TAKE 1 CAPSULE BY MOUTH EVERY DAY active Not Available Not Available No t Available mupirocin 2 % topical ointment APPLY TOPICALL Y ONCE DAILY TO OPEN WOUNDS active Not Available Not Available No t Available sodium,po tassium,m ag sulfates 17.5 gram-3.13 gram-1.6 gram oral soln TAKE DIRECTED 12/02 completed Patient states he is no longer on this medicati on Not Available Not Available Not Available Xarelto 20 mg tablet Take 1 mg every day by oral route for 30 days. active states that he would like to discuss stopping this Not Available Not Available Not Available Vitals Date Recorded Body weight Body mass index (BMI) Body height Oxygen saturation Oxygen saturation in Arterial blood by Pulse oximetry Heart rate Systolic blood pressure Diastolic blood pressure Provider Name and Address Organization Details Last Updated DateTime 4 943567. 31 g 34.4 kg/m2 182.88 cm 97 % 97 % 55 /min 132 mm[Hg] 66 mm[Hg] Rima Marie MA [facility] 09:43:38 Date Recorded Respiratory rate Systolic blood pressure Diastolic blood pressure Provider Name and Address Organization Details Last Updated DateTime 12/03/2023 16 /min 114 mm[Hg] 80 mm[Hg] BRITTANY Barclay Attn: Accounting, [address] [place], [address], [facility] 12/03/2023 10:11:32 Date Recorded Body height Body mass index (BMI) Body weight Respiratory rate Oxygen saturation Oxygen saturation in Arterial blood by Pulse oximetry Heart rate Systolic blood pressure Diastolic blood pressure Provider Name and Address Organization Details Last Updated DateTime 4 182.88 cm 32 kg/m2 376043. 8 g 18 /min 99 % 99 % 55 /min 136 mm[Hg] 82 mm[Hg] Kenneth Cade MA [facility] 09:22:16 Date Recorded Systolic blood pressure Diastolic blood pressure Provider Name and Address Organization Details Last Updated DateTime 05/30/2024 128 mm[Hg] 80 mm[Hg] BRITTANY Barclay Attn: Accounting, [place], [address], [facility] 05/30/2024 09:41:33 Social History Question Answer Notes LastModified by Organizat ion Details LastModified Time Tobacco Smoking Status Current Every Day Smoker Ellen Strauss [facility], [place] - [facility] 09/27/2023 10:10:36 Do You Have An Advance Directive? No Information n ot available 12/03/2023 What Is Your Level Of Alcohol Consumption? None [email or web address] Information not available 09/27/2023 Are You Blind Or Do You Have Difficulty Seeing? No [email or web address] Information n ot available 09/27/2023 What Is Your Level Of Caffeine Consumption? Moderate [email or web address] Information not available 09/27/2023 In The 14 Days Before Symptom Onset, Have You Had Close Contact With A Laboratory-confirm ed COVID-19 While That Case Was Ill? No [email or web address] Information n ot available 09/27/2023 In The 14 Days Before Symptom Onset, Have You Had Close Contact With A Person Who Is Under Investigation For COVID-19 While That Person Was Ill? No Information not available 09/27/2023 Have You Been To An Area Known To Be High Risk For COVID-19? No [email or web address] Information not available 09/27/2023 Are You Currently Employed? No [email or web address] Information not available 09/27/2023 Are You Deaf Or Do You Have Serious Difficulty Hearing? No Information not available 09/27/2023 What Type Of Diet Are You Following? REGULAR [email or web address] Information n ot available 09/27/2023 Are There Any Guns Present In Your Home? Yes Information not available 09/27/2023 What Was The Date Of Your Most Recent Tobacco Screening? 05/30/2024 Information not available 05/30/2024 What Is Your Current Pack Years? 20-29packyear s Information not available 05/30/2024 What Is Your Relationship Status? [email or web address] Information not available 09/27/2023 Do You Use Your Seat Belt Or Car Seat Routinely? Yes [email or web address] Information not available 09/27/2023 Do You Have Smoke And Carbon Monoxide Detectors In Your Home? Yes [email or web address] Information not available 09/27/2023 At What Age Did You Start Smoking Tobacco? 17 [email or web address] Information not available 09/27/2023 How Much Tobacco Do You Smoke? 0.25 PPD [email or web address] Information not available 09/27/2023 Do You Use Any Illicit Or Recreational Drugs? No [email or web address] Information not available 09/27/2023 Do You Use Sunscreen Routinely? No [email or web address] Information not available 09/27/2023 Has Tobacco Cessation Counseling Been Provided? Yes Information not available 12/03/2023 On What Date Was Tobacco Cessation Counseling Provided? 05/30/2024 Information not available 05/30/2024 Do You Or Have You Ever Used Any Other Forms Of Tobacco Or Nicotine? No [email or web address] Information not available 09/27/2023 Sex: Male Functional Status Question Answer Note LastModified by Organization D etails LastModified Time Are you able to care for yourself? Yes [email or web address] Information not available 09/27/2023 What is your exercise level? Moderate [email or web address] Information not available 09/27/2023 Mental Status None recorded. Family History Relationship Description Onset Age of this Age Resolved Age Notes LastModified by Organization Details LastModified Time Mother Cerebrovascu lar accident 80 Not available 10:09:42 Father Alcoholism 62 [email or web address] Not avail able 09/27/2023 10:09:55 Medical History Condition Response High Blood Pressure Y Atrial Fibrillation Y Thyroid Problems Y Blood Clots N Immunizations Vaccine Type Date Status Note Provider Nam e and Address Organization Details Recorded Time SARS-COV-2 (COVID-19) vaccine, UNSPECIFIED 2 completed GUILLERMINA Swenson - [facility] 09/27/2023 10:06:05 SARS-COV-2 (COVID-19) vaccine, UNSPECIFIED 1 completed GUILLERMINA Swneson - [facility] 09/27/2023 10:06:15 Pneumococcal conjugate PCV20, polysaccharide [id number] conjugate, adjuvant, PF 2 completed GUILLERMINA Swenson - [facility] 09/27/2023 10:07:05 Past Encounters Encounter ID Performer Location Encounter Start Date Encounter Closed Date Diagnosis/Indication Diagnosis SNOMED-CT Code Diagnosis ICD10 Code Diagnosis Note [id number] [facility]adon Osei [address] [place] [address] 12/03/2023 09:22:48 12/03/2023 12:04:15 Chronic atrial fibrillation 709480535 I48.20 on warfarin therapy. INR 2.5 . continue f/u with cardiology . Impaired g lucose tolerance 2338563 R73.09 a1c due in March. hx of IGT. Benign ess ential hypertension 3084568 I10 great bp control. stable on meds. Hypothyroidism 31133934 E03.9 stable on levothyrox ine 75mcg daily. due for labs in March again. Obstructiv e sleep apnea syndrome 39714481 G47.33 doesn't use cpap machine, hasn't used in years . Long-term current use of anticoagulant 692910685 Z79.01 standing orders for PT/INR ordered. Long-term drug therapy 400585218 Z79.899 next full lab panel due in March. Body mass index 30+ - obesity 738667184 Z68.34 discussed healthy diet, exercise, controllin g carbohydra elaina and added sugars in the diet Obesity 890003940 E66.8 [id number] BRITTANY Barclay [facility] [place] [address] [place] [address] 05/30/2024 09:01:17 05/30/2024 10:14:08 Chronic atrial fibrillation 926969500 I48.20 on xarelto but he stopped it due to black stools x 5 days approx. Encouraged patient to immediatel y reach out to his cardiologi st so they can determine an alternate option for managing his atrial fibrillati on anticoagul ation. Benign ess ential hypertension 5100119 I10 great bp control. stable on meds. Hypothyroidism 23282143 E03.9 stable on levothyrox ine 75mcg daily. Labs are due in September Impaired g lucose tolerance 3746690 R73.09 hx of IGT. Repeat labs in September Obstructiv e sleep apnea syndrome 62012571 G47.33 doesn't use cpap machine, hasn't used in years . Long-term drug therapy 608180194 Z79.899 next full lab panel due in September Body mass index 30+ - obesity 741767304 Z68.34 discussed healthy diet, exercise, controllin g carbohydra elaina and added sugars in the diet Obesity 490613986 E66.9 Long-term current use of anticoagulant 249365072 Z79.01 Patient has been on Xarelto therapy but now has darker stools and stopped his Xarelto on his own. He needs to reach out promptly to Cardiology and he said he is going to go to their office today Tobacco user 607165367 Z 72.0 Refer for annual low-dose CT scan of the lungs Pulmonary emphysema 8743 3001 J43.9 Underlying history noted of emphysema, he is not taking any inhalers and feels that he is doing fine Melena 7484591 K92.1 Melena in the face of underlying anticoagul ation. He does not have any upper abdominal pain but there is concern for gastritis versus peptic ulcer disease. We will refer him for an EGD. Dr. Faustin was his previous GI that completed his colonoscop y in 2022. Nicotine dependence 5629 4008 F17.200 Tobacco de pendence caused by cigarettes 6733861958 5214473 F17.210 Health Concerns Section Related Observation LastModified by Organization Detai ls LastModified Time None Recorded Concern Status LastModified by Organization Details LastModified Time None Recorded Advance Directives Directive N: Payers Encounter Date Sequence Insurance Name Policy Number Policy Le Covered Member ID Le Member ID Guarantor Name 12/03/2023 1 [place] Andres Santiago [id number] Andres Santiago 05/30/2024 [place] - [facility] - [facility] Andres Santiago [id number] Andres Santiago Notes Date Note Type Note Provider Name and Address Organization Details Recorded Time 12/03/19 24 text/ht ml Atrial FibrillationReported bypatient.Notes:pt follows routinely with cardiology, and is on warfarin with INR's managed by this office.HypertensionReported bypatient.Notes:pt is taking diltiazem ER 120mg daily and metoprolol ER 100mg daily.Obstructive Sleep Apnea F/UReported bypatient.Notes:pt has underlying YENNIFER but unable to tolerate cpap machine.ThyroidReported bypatient.Notes:pt is taking levothyroxine 75mcg daily. due for labs. BRITTANY Barclay Attn: Accounting, [address] [place], [address], [place] [facility] 12/23/2023 17:31:09 05/30/20 24 text/ht ml Atrial FibrillationReported bypatient.Notes:pt follows routinely with cardiologyHypertensionReported bypatient.Notes:pt is taking diltiazem ER 120mg daily and metoprolol ER 100mg daily.Obstructive Sleep Apnea F/UReported bypatient.Notes:pt has underlying YENNIFER but unable to tolerate cpap machine.ThyroidReported bypatient.Notes:pt is taking levothyroxine 75mcg daily. due for labs. december 2022 colonoscopy ascending colon polyp with Dr. Flores patient reports he is having darker stools and he is on Xarelto and he read about how it can cause stomach bleeding so he stopped the medication on his own and he is going to be talking to Cardiology about other options. BRITTANY Barclay Attn: Accounting, [address] [facility], [place], [address], [facility] - [facility] 06/12/2024 09:19:31
--- OUTSIDE RECORDS SUMMARY | 2024-07-26 06:45 | XMS_ITS | Data Portability ---
Author Organization [facility] General Specific GROUP [employer], Main Office Address [address] [place] [address] Assessment No assessment recorded. Plan of Treatment Reminders Order Date Submit Date Provider Last Modified By Organization Details Last Modified Time Details Appointments None record ed. Lab PT/INR 023 03/24/20 23 [email or web address] [facility] [place], [address], [place], [address], 3 18:06:52 PT/INR 023 04/21/20 23 [email or web address] [facility] [place], [address], [place], [address], 3 17:01:09 PT/INR 023 05/26/20 23 [email or web address] [facility] [place], [address], [place], [address], 3 17:12:09 PT/INR 024 06/23/19 24 [email or web address] [facility] [place], [address], [place], [address], 4 12:32:51 PT/INR 024 07/14/19 24 [email or web address] [facility] [place], [address], [place], [address], 11:06:47 Referral None record ed. Procedures None record ed. Surgeries None record ed. Imaging None record ed. Medication Orders None record ed. Patient TargetsNo targets recorded. Patient InstructionsNo instructions recorded. Reason for Referral None Reported. Results Created Date Observation Date Name Description Value Unit Range Abnormal Flag Note LastModifiedBy Organization Detail LastModifiedTime 02/25/2002/24/2023 PT/IN R PT 38.8 Not Available [facility] [place] [address], [place], [address], 02/24/2023 08:43:16 02/25/20 23 02/24/2023 PT/IN R INR 3.2 Not Available [facility] [place] [address], [place], [address], 02/24/2023 08:43:16 03/24/20 23 03/24/2023 PT/IN R PT 35.5 Not Available [facility] [place] [address], [place], [address], 03/24/2023 08:47:42 03/24/20 23 03/24/2023 PT/IN R INR 3.0 Not Available [facility] [place] [address], [place], [address], 03/24/2023 08:47:42 04/21/20 23 04/21/2023 PT/IN R PT 3.0 Not Available [facility] [place] [address], [place], [address], 04/21/2023 08:44:18 04/21/20 23 04/21/2023 PT/IN R INR 36 Not Available [facility] [place] [address], [place], [address], 04/21/2023 08:44:18 05/26/20 23 05/26/2023 PT/IN R PT 33.7 Not Available [facility] [place] [address], [place], [address], 05/26/2023 08:57:50 05/26/20 23 05/26/2023 PT/IN R INR 2.8 Not Available [facility] [place] [address], [place], [address], 05/26/2023 08:57:50 06/23/19 24 06/23/2023 PT/IN R PT 32.3 Not Available [facility] [place] [address], [place], [address], 06/23/2023 10:39:42 06/23/19 24 06/23/2023 PT/IN R INR 2.7 Not Available [facility] [place] [address], [place], [address], 06/23/2023 10:39:42 07/14/19 24 07/14/2023 PT/IN R PT 28.6 Not Available [facility] [place] [address], [place], [address], 07/14/2023 10:50:55 07/14/19 24 07/14/2023 PT/IN R INR 2.4 Not Available [facility] [place] [address], [place], [address], 07/14/2023 10:50:55 Result Notes None recorded. Problems Name Problem SNOMED Code Status Onset Date Resolution Date Notes Provider Name and Address Organization Details Recorded Time Benign essential hypertensi on 0459934 Active 2018 Not Available [facility] 03/01/202 3 06:03:07 Anticoagul ant therapy Active 2021 Not Available [facility] 3 06:03:07 Long-term drug therapy Active 2021 Not Available [facility] 3 06:03:07 Adult health examinatio n Active 2021 Not Available [facility] 3 06:03:07 Cholestero l screening Active 2021 Not Available [facility] 3 06:03:07 Screening for malignant neoplasm of colon Active 2021 Not Available [facility] 3 06:03:08 Screening for disorder Active 2021 Not Available [facility] 3 06:03:08 Hypothyroi dism 93713555 Active 2018 Not Available [facility] 3 06:03:08 Chronic atrial fibrillati on 149708177 Active 2021 Not Available [facility] 3 06:03:08 Screening for malignant neoplasm of prostate Active 2021 Not Available [facility] 3 06:03:08 Atrial fibrillati on 63828788 Active 2017 Not Available [facility] 3 06:03:08 Joint pain 52545601 Active Not Available [facility] 3 06:03:08 Pleural effusion 12150641 Active 2021 Not Available [facility] 3 06:03:08 Long-term current use of anticoagul ant 245225629 Active 2020 Not Available [facility] 3 06:03:08 Strain of biceps brachii muscle and/or tendon 929465150 Active 2021 Not Available [facility] 3 06:03:08 Obstructiv e sleep apnea syndrome 30368712 Active Not Available [facility] 3 06:03:09 Hyperglyce pamela 01957017 Active Not Available [facility] 3 06:03:09 Pulmonary emphysema 79877446 Active 2021 Not Available [facility] 3 06:03:09 Impaired glucose tolerance 5307669 Active 2021 Not Available [facility] 3 06:03:09 Aortic aneurysm screening abnormal 435836623 Active 2022 BRITTANY Barclay [address], [place], [address] , [email or web address] 3 13:19:58 Kidney lesion 6435150577573 0 Active 2022 BRITTANY Barclay [address], [address], [place], [address] , [email or web address] 3 15:21:07 Imaging of gastrointe stinal tract abnormal 336766094 Active 2022 BRITTANY Barclay [address], [address], [place], [address] , [email or web address] 3 15:22:55 Problem Notes None recorded. Procedures Surgical History Date Name Laterality Status Provider Name and Address Organization Details Recorded Time 08/22/19 Medicare Wellness CPT Code, subsequent completed Sonali Da Silva RN [place] [employer] 08/21/2022 08:53:23 05/14/20 08 Colonoscopy completed Not Available [facility] 08/19/2022 05:55:56 06/21/18 98 Cholecystectomy completed Not Available [facility] 08/19/2022 05:55:56 06/21/18 56 Appendectomy completed Not Available [facility] 08/19/2022 05:55:56 Imaging Results None recorded. Procedure Notes None recorded. Medical Equipment None Reported. Allergies No known drug allergies Medications Name Sig Start Date Stop Date Status Note LastModified by Organization Details LastModified Time amoxicillin 500 mg capsule TAKE 1 CAPSULE BY MOUTH THREE TIMES A DAY UNTIL FINISHED active Not Available Not Available No t Available metoprolol succinate ER 50 mg tablet,exte nded release 24 hr TAKE 1 TABLET BY MOUTH EVERY DAY 06/25 completed Not Available Not Available Not Available metoprolol succinate ER 100 mg tablet,exte nded release 24 hr TAKE 1 TABLET BY MOUTH EVERY DAY active Not Available Not Available No t Available Jo Low Dose Aspirin 81 mg tablet,kecia yed release Take 1 tablet every day by oral route. 2021 active Not Available Not Available Not Avai lable amlodipine 5 mg tablet TAKE 1 TABLET BY MOUTH EVERY DAY 06/25 completed Not Available Not Available Not Available tramadol 50 mg tablet Take 1 tablet every 6 hours by oral route as needed. active Not Available Not Available No t Available levothyroxi ne 75 mcg tablet TAKE 1 TABLET BY MOUTH EVERY DAY IN THE MORNING active Not Available Not Available No t Available lisinopril 10 mg tablet 08/22 completed Not Available Not Available Not Available warfarin 5 mg tablet TAKE ONE TABLET BY MOUTH ONCE DAILY OR DIRECTED BASED ON INR READING active Not Available Not Available No t Available diltiazem ER (XR/XT) 120 mg capsule,ext ended release 24 hr, controlled TAKE 1 CAPSULE BY MOUTH EVERY DAY active Not Available Not Available No t Available furosemide 20 mg tablet 06/25 completed Not Available Not Available Not Available metoprolol succinate ER 25 mg tablet,exte nded release 24 hr Take 1 tablet every day by oral route for 90 days. active Not Available Not Available No t Available levofloxaci n 500 mg tablet Take 1 tablet every 24 hours by oral route. 08/10 completed Not Available Not Available Not Available diltiazem 30 mg tablet TAKE 1 TABLET BY MOUTH 3 TIMES A DAY. 10/23 completed Not Available Not Available Not Available amoxicillin 875 mg-potassiu m clavulanate 125 mg tablet TAKE 1 TABLET BY MOUTH EVERY 12 HOURS 06/12 completed Not Available Not Available Not Available Jantoven 1 mg tablet Take 1 tablet every day by oral route as directed. active Not Available Not Available No t Available nitrofurant oin monohydrate /macrocryst als 100 mg capsule Take 1 capsule every 12 hours by oral route. 05/25 completed Not Available Not Available Not Available sodium,pota ssium,mag sulfates 17.5 gram-3.13 gram-1.6 gram oral soln TAKE DIRECTED 02/24 completed Not Available Not Available Not Available Fluad Quad 7004-2362(6 5yr up)(PF) 60 mcg (15 mcg x 4)/0.5mL IM syringe PHARMACY ADMINIST[facility] 08/14 completed Not Available Not Available Not Available Vitals Date Recorded Body height Body temperature Provider N cody and Address Organization Details Last Updated DateTime 05/26/2023 182.88 cm 97.2 [degF] Darline CEDRIC Nicole [place] [employer] 05/26/2023 08:57:11 Date Recorded Body height Body temperature Provider Nura cody and Address Organization Details Last Updated DateTime 06/23/2023 182.88 cm 97.2 [degF] Darline CEDRIC Nicole [place] [employer] 06/23/2023 10:38:55 Date Recorded Body height Body temperature Provider Nura cody and Address Organization Details Last Updated DateTime 07/14/2023 182.88 cm 97.2 [degF] Darline Corey CEDRIC [place] [employer] 07/14/2023 10:50:14 Social History Question Answer Notes LastModified by Organizat ion Details LastModified Time Tobacco Smoking Status Current Every Day Smoker Not Available [facility] 08/19/2022 05:53:38 Do You Have An Advance Directive? No MIGRATION.[id number] Information not available 08/19/2022 What Is Your Level Of Alcohol Consumption? None MIGRATION.403157 7183 Information not available 08/19/2022 Do You Wear A Helmet When Biking? No MIGRATION.967494 8237 Information not available 08/19/2022 Are You Blind Or Do You Have Difficulty Seeing? No MIGRATION.188924 3653 Information not available 08/19/2022 What Is Your Level Of Caffeine Consumption? Moderate MIGRATION.938973 8362 Information not available 08/19/2022 In The 14 Days Before Symptom Onset, Have You Had Close Contact With A Laboratory-confirm ed COVID-19 While That Case Was Ill? No MIGRATION.417386 3176 Information not available 08/19/2022 In The 14 Days Before Symptom Onset, Have You Had Close Contact With A Person Who Is Under Investigation For COVID-19 While That Person Was Ill? No MIGRATION.355364 4485 Information not available 08/19/2022 Are You Currently Employed? No [email or web address] Information not available 08/20/2022 Are You Deaf Or Do You Have Serious Difficulty Hearing? No MIGRATION.225779 6611 Information not available 08/19/2022 What Type Of Diet Are You Following? REGULAR MIGRATION.976920 1363 Information not available 08/19/2022 Have There Been Any Changes To Your Family Or Social Situation? No MIGRATION.687264 0588 Information not available 08/19/2022 Are There Any Guns Present In Your Home? Yes MIGRATION.584319 4655 Information not available 08/19/2022 Do You Use Insect Repellent Routinely? No MIGRATION.688347 7593 Information not available 08/19/2022 Advance Directive- Providers Has Reviewed Directive And Consents To Follow Them (insert Provider Name With Any Objectives In Notes Field) No MIGRATION.156467 6987 Information not available 08/19/2022 Do You Have A Medical Power Of Joint Special Operations? No MIGRATION.393568 9717 Information not available 08/19/2022 Do You Have Any Pets? No MIGRATION.491051 6415 Information not available 08/19/2022 What Is Your Relationship Status? MIGRATION.111650 2767 Information not available 08/19/2022 Do You Use Your Seat Belt Or Car Seat Routinely? Yes MIGRATION.599063 5652 Information not available 08/19/2022 Do You Have Smoke And Carbon Monoxide Detectors In Your Home? Yes MIGRATION.871314 8866 Information not available 08/19/2022 At What Age Did You Start Smoking Tobacco? 17 MIGRATION.476096 1561 Information not available 08/19/2022 Are You Passively Exposed To Smoke? No MIGRATION.244956 0099 Information not available 08/19/2022 Are There Any Smokers In Your House? Yes MIGRATION.330735 3721 Information not available 08/19/2022 How Much Tobacco Do You Smoke? 0.25 PPD MIGRATION.787805 5239 Information not available 08/19/2022 Do You Feel Stressed (tense, Restless, Nervous, Or Anxious, Or Unable To Sleep At Night)? [id number] MIGRATION.913273 2722 Information not available 08/19/2022 Do You Use Any Illicit Or Recreational Drugs? No MIGRATION.446423 3968 Information not available 08/19/2022 Do You Use Sunscreen Routinely? No MIGRATION.748293 3648 Information not available 08/19/2022 Has Tobacco Cessation Counseling Been Provided? No MIGRATION.500856 2579 Information not available 08/19/2022 Have You Recently Traveled Abroad? No MIGRATION.269062 2010 Information not available 08/19/2022 Do You Have Any Dietary Restrictions? No MIGRATION.984653 0553 Information not available 08/19/2022 Do You Or Have You Ever Used Any Other Forms Of Tobacco Or Nicotine? No MIGRATION.948362 1515 Information not available 08/19/2022 Sex: Unknown Functional Status Question Answer Note LastModified by Organizat [employer] Details LastModified Time Do you have difficulty walking or climbing stairs? No MIGRATION.0607815 026 Information not available 08/19/2022 Do you have transportation difficulties? No MIGRATION.7505425 026 Information not available 08/19/2022 Are you able to walk? YESWOREST MIGRATION.9989474 026 Information not available 08/19/2022 Do you have difficulty doing errands alone? No MIGRATION.4983472 026 Information not available 08/19/2022 Are you able to care for yourself? Yes MIGRATION.2124715 026 Information not available 08/19/2022 Do you have difficulty dressing or bathing? No MIGRATION.2494915 026 Information not available 08/19/2022 What is your exercise level? Moderate MIGRATION.5080071 026 Information not available 08/19/2022 Mental Status Question Answer Note LastModified by Organizat ion Details LastModified Time Do you have difficulty concentrating, remembering or making decisions? No MIGRATION.[id number] 6 Information not available 08/19/2022 Family History Relationship Description Onset Age of this Age Resolved Age Notes LastModified by Organization Details LastModified Time Mother Cerebrovascu lar accident 80 MIGRATION.198 [id number] Not available 08/19/2022 05:55:58 Father Alcoholism 62 MIGRATION.114 [id number] Not available 08/19/2022 05:55:58 Medical History Condition Response CARDIAC ARRHYTHMIA Y Immunizations Vaccine Type Date Status Note Provider Nam e and Address Organization Details Recorded Time COVID-19, mRNA, LNP-S, PF, 30 mcg/0.3 mL dose 1 completed Not Available [facility] 08/19/2022 06:09:10 influenza, unspecified formulation 0 completed Not Available [facility] 08/19/2022 06:09:10 Pneumococcal conjugate PCV20, polysaccharide [id number] conjugate, adjuvant, PF 2 completed Not Available [facility] 08/19/2022 06:09:10 COVID-19, mRNA, LNP-S, PF, 30 mcg/0.3 mL dose 2 completed Not Available [facility] 08/19/2022 06:09:10 Past Encounters Encounter ID Performer Location Encounter Start Date Encounter Closed Date Diagnosis/Indication Diagnosis SNOMED-CT Code Diagnosis ICD10 Code Diagnosis Note [id number] [facility] [place] [address] [place] [address] 09/11/2020 00:00:00 09/11/2020 10:34:42 [id number] [facility] [place] [address] [place] [address] 10/16/2020 00:00:00 10/16/2020 13:03:27 [id number] [facility] [place] [address] [place] [address] 10/21/2020 00:00:00 10/21/2020 15:35:06 [id number] [facility] [place] [address] [place] [address] 10/25/2020 00:00:00 10/25/2020 18:03:10 [id number] [facility] [place] [address] [place] [address] 11/07/2020 00:00:00 11/07/2020 09:11:46 [id number] [facility] [place] [address] [place] [address] 11/21/2020 00:00:00 11/21/2020 18:05:04 [id number] [facility] [place] [address] [place] [address] 12/06/2020 00:00:00 12/06/2020 10:00:43 [id number] [facility] [place] [address] [place] [address] 01/02/2021 00:00:00 01/07/2021 18:44:24 [id number] [facility] [place] [address] [place] [address] 01/22/2021 00:00:00 01/22/2021 10:30:40 [id number] [facility] [place] [address] [place] [address] 02/12/2021 00:00:00 02/16/2021 16:21:08 [id number] [facility] [place] [address] [place] [address] 03/13/2021 00:00:00 03/13/2021 09:43:18 [id number] [facility] [place] [address] [place] [address] 04/17/2021 00:00:00 04/17/2021 22:43:56 [id number] [facility] [place] [address] [place] [address] 05/20/2021 00:00:00 05/20/2021 17:16:51 [id number] [facility] [place] [address] [place] [address] 06/17/2021 00:00:00 06/17/2021 15:35:48 [id number] [facility] [place] [address] [place] [address] 06/19/2021 00:00:00 06/19/2021 10:49:35 [id number] [facility] [place] [address] [place] [address] 06/25/2021 00:00:00 07/21/2021 19:15:47 [id number] [facility] [place] [address] [place] [address] 06/27/2021 00:00:00 06/27/2021 17:30:31 [id number] [facility] [place] [address] [place] [address] 06/30/2021 00:00:00 06/30/2021 13:24:28 [id number] [facility] [place] [address] [place] [address] 07/02/2021 00:00:00 07/02/2021 17:58:35 [id number] [facility] [place] [address] [place] [address] 07/04/2021 00:00:00 07/07/2021 13:31:31 [id number] [facility] [place] [address] [place] [address] 07/07/2021 00:00:00 07/07/2021 13:30:00 [id number] [facility] [place] [address] [place] [address] 07/11/2021 00:00:00 07/11/2021 12:04:35 [id number] [facility] [place] [address] [place] [address] 07/18/2021 00:00:00 07/20/2021 11:22:52 [id number] [facility] [place] [address] [place] [address] 07/21/2021 00:00:00 07/21/2021 09:29:35 [id number] [facility] [place] [address] [place] [address] 08/05/2021 00:00:00 08/13/2021 18:42:19 [id number] [facility] [place] [address] [place] [address] 08/20/2021 00:00:00 2021 19:47:50 [id number] [facility] [place] [address] [place] [address] 09/03/2021 00:00:00 09/04/2021 17:37:20 [id number] [facility] [place] [address] [place] [address] 09/10/2021 00:00:00 09/10/2021 17:44:38 [id number] [facility] [place] [address] [place] [address] 09/17/2021 00:00:00 09/17/2021 10:20:01 [id number] [facility] [place] [address] [place] [address] 10/03/2021 00:00:00 10/03/2021 11:50:20 [id number] [facility] [place] [address] [place] [address] 10/23/2021 00:00:00 11/18/2021 22:09:36 [id number] [facility] [place] [address] [place] [address] 11/05/2021 00:00:00 11/06/2021 18:02:46 [id number] [facility] [place] [address] [place] [address] 12/04/2021 00:00:00 12/05/2021 10:42:17 [id number] [facility] [place] [address] [place] [address] 12/31/2021 00:00:00 01/02/2022 12:36:26 [id number] [facility] [place] [address] [place] [address] 01/05/2022 00:00:00 01/05/2022 13:45:45 [id number] [facility] [place] [address] [place] [address] 01/12/2022 00:00:00 01/12/2022 16:36:14 [id number] [facility] [place] [address] [place] [address] 02/04/2022 00:00:00 02/04/2022 13:52:18 [id number] [facility] [place] [address] [place] [address] 02/09/2022 00:00:00 02/09/2022 18:29:51 [id number] [facility] [place] [address] [place] [address] 02/16/2022 00:00:00 02/16/2022 09:47:29 [id number] [facility] [place] [address] [place] [address] 02/20/2022 00:00:00 03/20/2022 18:07:22 [id number] [facility] [place] [address] [place] [address] 03/20/2022 00:00:00 03/20/2022 10:13:10 [id number] [facility] [place] [address] [place] [address] 04/16/2022 00:00:00 04/16/2022 10:23:21 [id number] [facility] [place] [address] [place] [address] 05/20/2022 00:00:00 05/20/2022 11:35:09 [id number] [facility] [place] [address] [place] [address] 06/23/2022 00:00:00 06/23/2022 09:34:53 [id number] [facility] [place] [address] [place] [address] 07/24/2022 00:00:00 07/27/2022 16:15:43 [id number] BRITTANY Barclay [facility] [place] [address] [place] [address] 08/21/2022 08:51:46 08/21/2022 09:41:02 Adult health examination 276214735 Z00.00 MAWE completed Screening for disorder 078056141 Z13.9 Anticoagulant therapy 18 8868535 Z79.01 on coumadin, INR stable. Benign ess ential hypertension 5283632 I10 stable. Obstructiv e sleep apnea syndrome 57047191 G47.33 pt is unable to tolerated cpap Hypothyroidism 01561901 E03.9 on supplement and due for TFTs again in january. Atrial fibrillation 4943 6004 I48.91 follows with cardiology and is on coumadin. Impaired g lucose tolerance 8354180 R73.03 6.1% a1c . stable. Long-term current use of anticoagulant 725598849 Z79.01 Long-term drug therapy 832291021 Z79.899 next labs due in january. Tobacco user 083457152 Z 72.[address] chest and u/s AA [id number] BRITTANY Barclay [facility] [place] [address] [place] [address] 10/02/2022 13:06:41 10/02/2022 13:27:57 Long-term current use of anticoagulant 381350748 Z79.01 [id number] BRITTANY Barclay [facility] [place] [address] [place] [address] 10/09/2022 09:19:59 10/09/2022 09:22:33 Long-term current use of anticoagulant 481695123 Z79.01 [id number] BRITTANY Barclay [facility] [place] [address] [place] [address] 11/06/2022 09:18:53 11/06/2022 09:21:39 Long-term current use of anticoagulant 306365937 Z79.01 [id number] BRITTANY Barclay [facility] [place] [address] [place] [address] 11/13/2022 09:06:40 11/13/2022 09:13:12 Long-term current use of anticoagulant 796538916 Z79.01 next labs due in january. [id number] BRITTANY Bacrlay [facility] [place] [address] [place] [address] 12/16/2022 08:37:38 12/16/2022 08:49:23 Anticoagulant therapy 630783770 Z79.01 [id number] BRITTANY Barclay [facility] [place] [address] [place] [address] 01/08/2023 08:37:53 01/08/2023 08:44:28 Long-term current use of anticoagulant 469518907 Z79.01 next labs due in january. [id number] BRITTANY Barclay [facility] [address] [place] [address] 02/03/2023 08:40:11 02/03/2023 08:56:52 Anticoagulant therapy [id number] Z79.01 [id number] BRITTANY Barclay [facility] [address] [place] [address] 02/24/2023 08:40:21 02/24/2023 09:24:26 Anticoagulant therapy [id number] Z79.01 INR 3.2 stable. repeat next week Benign ess ential hypertension 9286861 I10 stable. Hypothyroidism 63891119 E03.9 stable on supplement . due for repeat labs in jul 2023 Obstructiv e sleep apnea syndrome 20649275 G47.33 pt is unable to tolerated cpap Chronic at rial fibrillation 005831177 I48.20 following with cardiology routinely. on coumadin with INR following at our office. Impaired g lucose tolerance 3661199 R73.03 6.1% a1c stable. Long-term drug therapy 324769283 Z79.899 next lab panel due in Jul Pulmonary emphysema 8743 3001 J43.9 stable with no acute changes. Cholesterol screening 27 6386653 Z13.015 [id number] BRITTANY Barclay [facility] [address] [place] [address] 03/24/2023 08:39:58 03/24/2023 08:49:28 Anticoagulant therapy [id number] Z79.01 next lab panel due in Jul [id number] BRITTANY Barclay [facility] Internal [facility] [place] [address] [place] [address] 04/21/2023 08:33:09 04/21/2023 08:47:10 Anticoagulant therapy [id number] Z79.01 next lab panel due in Jul [id number] BRITTANY Barclay [facility] [address] [place] [address] 05/26/2023 08:30:24 05/26/2023 08:58:56 Long-term current use of anticoagulant 068339841 Z79.01 next labs due in january. [id number] BRITTANY Barclay [facility] [address] [place] [address] 06/23/2023 10:38:15 06/23/2023 10:41:07 Long-term current use of anticoagulant [id number] Z79.01 next labs due in january. [id number] BRITTANY Barclay [facility] [address] [place] [address] 07/14/2023 10:49:04 07/14/2023 11:15:03 Long-term current use of anticoagulant [id number] Z79.01 next labs due in january. Health Concerns Section Related Observation LastModified by Organization Detai ls LastModified Time None Recorded Concern Status LastModified by Organization Details LastModified Time None Recorded Advance Directives Directive N: Payers Encounter Date Sequence Insurance Name Policy Number Policy Le Covered Member ID Le Member ID Guarantor Name 03/24/2023 1 [place] Andres Santiago [id number] Andres Santiago 03/24/2023 2 [employer] [place] - PLAN G (MEDICARE SUPPLEMENT) PLAN G Andres Santiago [id number] Andres Santiago 04/21/2023 1 [place] Andres Santiago [id number] 4 Andres Santiago 04/21/2023 2 [employer] [place] - PLAN G (MEDICARE SUPPLEMENT) PLAN G Andres Santiago [id number] Andres Santiago 05/26/2023 1 [place] Andres Santiago [id number] 4 Andres Santiago 05/26/2023 2 [employer] [place] - PLAN G (MEDICARE SUPPLEMENT) PLAN G Andres Santiago [id number] Andres Santiago 06/23/2023 1 [place] Andres Santiago [id number] 4 Andres Santiago 06/23/2023 2 [employer] [place] - PLAN G (MEDICARE SUPPLEMENT) PLAN G Andres Santiago [id number] Andres Santiago 07/14/2023 1 [place] Andres Santiago [id number] 4 Andres Santiago 07/14/2023 2 [employer] [place] - PLAN G (MEDICARE SUPPLEMENT) PLAN G Andres Santiago [id number] Andres Santiago
--- OUTSIDE RECORDS SUMMARY | 2024-07-26 06:45 | XMS_ITS | CONTINUITY OF CARE DOCUMENT ---
Author Name mookie damico Address Unknown Organization [facility] Address [address] [place] [address] Phone [phone] Care Team Providers Care Housesmith Name Role Phone Clint Narayan MD Unavailable SCHWIND STRATEGY ASSOCIATE, CHRISTOPHER Unavailable SCHWIND STRATEGY ASSOCIATE, CHRISTOPHER Unavailable PROBLEMS Condition Status Date Provider Notes Atrial fibrillation active Clint Narayan MD Atrial fib paroxysmal active Clint patel MD Sleep apnea active Clint Narayan MD Snoring active Clint Narayan MD HTN essential active Clint Narayan MD Leg weakness, bilateral active Roula baugh STRATEGY ASSOCIATE ENCOUNTERS Date Type Provider Location Encounter Diag nosis - In-person encounter Office Visit Clint Narayan MD [facility] - In-person encounter Office Visit Clint Narayan MD [facility] Leg weakness, bilateral - In-person encounter Office Visit Clint Narayan MD [facility] - In-person encounter Office Visit Clint Narayan MD [facility] - In-person encounter Office Visit Clint Narayan MD [facility] - In-person encounter Office Visit Clint Narayan MD [facility] - In-person encounter Office Visit Clint Narayan MD [facility] Atrial fibrillationAtrial fib paroxysmalSleep apneaSnoringHTN essential VITAL SIGNS Date Observation Value Provider Body Mass Index (Ratio) 36.56 kg/m2 Desire Narayan MD blood pressure, diastolic 97 mm[Hg] Betsy Manuel Dick blood pressure, systolic 159 mm[Hg] Chery Dick oxygen saturation, oximetry 97 % KelechiCintia Dick respiratory rate E&M 18 /min Justin brenda Kapil pulse rate 81 /min Kelechi carroll weight E&M 269.6 [lb_av] Kelechi montanez height E&M 72 [in_i] Kelechi carroll Body Mass Index (Ratio) 36.07 kg/m2 Desire Narayan MD blood pressure, diastolic 90 mm[Hg] Betsy Manuel Dick blood pressure, systolic 139 mm[Hg] Chery Deshawn Hutchinsonenson oxygen saturation, oximetry 97 % Kelechi Kapil respiratory rate E&M 18 /min Justin Dick pulse rate 96 /min Kelechi carroll weight E&M 266 [lb_av] Kelechi carroll height E&M 72 [in_i] Kelechi Sainz cecile blood pressure, diastolic 97 mm[Hg] Ma silvestre Geronimo blood pressure, systolic 155 mm[Hg] Esther petersonhernán Geronimo pulse rate 82 /min Elena Geronimo oxygen saturation, oximetry 95 % Elena Geronimo respiratory rate E&M 15 /min Elena Geronimo Body Mass Index (Ratio) 35.67 kg/m2 Deidre Geronimo weight E&M 263 [lb_av] Elena Geronimo blood pressure, diastolic 86 mm[Hg] Ma silvestre Oliveira blood pressure, systolic 132 mm[Hg] Esther petersona Tee pulse rate 83 /min Elena Tee oxygen saturation, oximetry 99 % Elena Oliveira respiratory rate E&M 16 /min Elena Tee Body Mass Index (Ratio) 34.69 kg/m2 Deidre Oliveira weight E&M 255.8 [lb_av] Elena Oliveira blood pressure, diastolic 94 mm[Hg] Me silvestre Geronimo blood pressure, systolic 148 mm[Hg] Esther Geronimo pulse rate 74 /min Elena Geronimo oxygen saturation, oximetry 96 % Elena Geronimo respiratory rate E&M 16 /min Elena Geronimo Body Mass Index (Ratio) 34.72 kg/m2 Deidre anil Geronimo weight E&M 256 [lb_av] Elena Geronimo blood pressure, diastolic, right arm 102 mm[Hg] Elena Oliveira blood pressure, systolic, right arm 161 m m[Hg] Elena Oliveira respiratory rate E&M 16 /min Elena Oliveira pulse rate 81 /min Elena Oliveira blood pressure, diastolic 102 mm[Hg] Me silvestre Oliveira blood pressure, systolic 177 mm[Hg] Esther Oliveira oxygen saturation, oximetry 98 % Elena Oliveira Body Mass Index (Ratio) 34.09 kg/m2 Deidre anil Oliveira height E&M 72 [in_i] Elena Oliveira weight E&M 251.4 [lb_av] Elena Oliveira ALLERGIES No Known Drug Allergies RESULTS Date Observation Value Provider Reference Range Interpretation Location international normalized ratio (INR) 3.1 Vandana Prater Normal prothrombin time (patient) 37.3 s Vandana Prater coagulation managed by Gregg West RN international normalized ratio (INR) 2.5 Gregg West RN Normal prothrombin time (patient) 30.0 s Gregg West RN coagulation managed by Gregg West RN international normalized ratio (INR) 1.9 Gregg West RN Normal prothrombin time (patient) 22.8 s Gregg West RN HISTORY OF MEDICATION USE Medication Status Instructions Dates Provider Indications Com ments NORVASC 5 MG ORAL TABLET active ONE TAB. DAILY Elena Geronimo COUMADIN 5 MG ORAL TABLET active one daily and as directed Clint Narayan MD LISINOPRIL 10 MG ORAL TABLET completed ONE TAB. DAILY - Elena Geronimo TOPROL XL 25 MG ORAL TABLET EXTENDED RELEASE 24 HOUR active ONE TAB DAILY Clint Narayan MD ASPIR-81 81 MG ORAL TABLET DELAYED RELEASE active once daily Clint Narayan MD SOCIAL HISTORY Date Observation Value Provider number of grandchildren Clint Narayan MD social history E&M Patient is a former smoker. Smoking History: Miguel Angel brown is a former smoker. Clint Narayan MD social history reviewed E&M revi ewed - no changes required Clint Narayan MD smoking, year quit 2017 Kelechi Dick smoking, date started 1962 James Dick smoking history, tot al pack/day 3/4 Kelechi Dick cigarette use yes Kelechi montanez smoking status Former smoker Kelechi Bertrand smoking status Current every day smoker S sharif Vora NP social history E&M Patient is a former smoker. Smoking History: Miguel Angel brown currently smokes every day. Miguel Angel brown has been counseled to quit. Roula Vora NP social history reviewed E&M revi ewed - no changes required Roula Vora NP smoking/tobacco cess ation, patient education and counseling yes Kelechi Dick smoking, date started 1962 James Dick smoking history, tot al pack/day 3/4 Kelechi Dick cigarette use yes Kelechi montanez social history E&M Patient is a former smoker. Smoking History: Miguel Angel brown currently smokes every day. Miguel Angel brown has been counseled to quit. Clint Narayan MD social history reviewed E&M revi ewed - no changes required Clint Narayan MD smoking/tobacco cess ation, patient education and counseling yes Elena Geronimo smoking, date started 1960 Siddhartha Geronimo smoking history, tot al pack/day 3/4 Elena Geronimo cigarette use yes Elena Geronimo smoking status Current every day smoker Blanquita Geronimo social history E&M Patient is a former smoker. Smoking History: Miguel Angel brown currently smokes every day. Miguel Angel brown has been counseled to quit. Clint Narayan MD social history reviewed E&M revi ewed - no changes required Clint Narayan MD smoking/tobacco cess ation, patient education and counseling yes Elena Oliveira smoking, date started 1962 Siddhartha Oliveira smoking history, tot al pack/day 3/4 Elena Oliveira cigarette use yes Elena Oliveira smoking status Current every day smoker Blanquita Oliveira social history E&M Patient is a former smoker. Smoking History: Miguel Angel brown is a former smoker. Clint Narayan MD social history reviewed E&M revi ewed - no changes required Clint Narayan MD smoking, date started 1962 Siddhartha Geronimo smoking history, tot al pack/day 3/4 Elena Geronimo cigarette use yes Elena Geronimo smoking status Former smoker Clint parker MD social history reviewed E&M revi ewed - no changes required Clint Narayan MD smoking, date started 1960 Siddhartha Oliveira smoking history, tot al pack/day 3/4 Elena Oliveira cigarette use yes Elena Oliveira smoking status Former smoker Elena Oliveira FAMILY HISTORY Family Member Condition Father Family History of Al coholism: Mother Family History of Di abetes: INSURANCE PROVIDERS Payer name Policy type / Coverage type Sowmya martinez ID [employer] [place] [employer] [id number] [place] MED[place] Medicare [id number] ADVANCE DIRECTIVES Name Date DISCUSSED - NO DECISION MADE TREATMENT PLAN Date Name Performer Cardiology:Improved after starti ng leg exercises. Clint Narayan MD Cardiology: O n CPAP. Clint Narayan MD Cardiology:Remains i n afib on EKG. Check echo to see if EF has deteriorated. H is updated medication list for this problem includes: Coumadin 5 Mg Oral Tablet (Warfarin sodium) ..... One daily and as directed Toprol Xl 25 Mg Oral Tablet Extended Release 24 Hour (Metoprolol succinate) ..... One tab daily Aspir-81 81 Mg Oral Tablet Delayed Release (Aspirin) ..... Once daily Clint Narayan MD Cardiology:BP contro lled. Says BP is in 120s when checked elsewhere. H is updated medication list for this problem includes: Norvasc 5 Mg Oral Tablet (Amlodipine besylate) ..... One tab. daily Toprol Xl 25 Mg Oral Tablet Extended Release 24 Hour (Metoprolol succinate) ..... One tab daily Aspir-81 81 Mg Oral Tablet Delayed Release (Aspirin) ..... Once daily Orders: S NOMED-CT: [id number] Current Medications Documented (SCT-[id number]) E KG (CPT-64915) Clint Narayan MD Cardiology:May represent claudic ation. May need LEANDROs Roula Vora NP Cardiology:Blood pre ssure today was 139/90. H is updated medication list for this problem includes: Norvasc 5 Mg Tabs (Amlodipine besylate) ..... One tab. daily Toprol Xl 25 Mg Tb24 (Metoprolol succinate) ..... One tab daily Aspir-81 81 Mg Oral Tbec (Aspirin) ..... Once daily Roula Vora NP Cardiology:EKG shows AFIB. Contiues on Metoprolol. On warfarin for afib. PCP follows INRs. Reports they are theraputic. H is updated medication list for this problem includes: Norvasc 5 Mg Tabs (Amlodipine besylate) ..... One tab. daily Coumadin 5 Mg Tabs (Warfarin sodium) ..... One daily and as directed Toprol Xl 25 Mg Tb24 (Metoprolol succinate) ..... One tab daily Aspir-81 81 Mg Oral Tbec (Aspirin) ..... Once daily Roula Vora NP Cardiology:On CPAP. Roula baugh NP Cardiology: H is updated medication list for this problem includes: Coumadin 5 Mg Tabs (Warfarin sodium) ..... One daily and as directed Toprol Xl 25 Mg Tb24 (Metoprolol succinate) ..... One tab daily Aspir-81 81 Mg Oral Tbec (Aspirin) ..... Once daily Orders: E KG (CPT-55157) Clint Narayan MD Cardiology: H is updated medication list for this problem includes: Norvasc 5 Mg Tabs (Amlodipine besylate) ..... One tab. daily Toprol Xl 25 Mg Tb24 (Metoprolol succinate) ..... One tab daily Aspir-81 81 Mg Oral Tbec (Aspirin) ..... Once daily Clint Narayan MD Cardiology: ON CPAP Clint parker MD Cardiology:PETE CDVN planned March 06. H is updated medication list for this problem includes: Coumadin 5 Mg Tabs (Warfarin sodium) ..... One daily and as directed Toprol Xl 25 Mg Tb24 (Metoprolol succinate) ..... One tab daily Aspir-81 81 Mg Oral Tbec (Aspirin) ..... Once daily Clint Narayan MD Cardiology: H is updated medication list for this problem includes: Norvasc 5 Mg Tabs (Amlodipine besylate) ..... One tab. daily Coumadin 5 Mg Tabs (Warfarin sodium) ..... One daily and as directed Toprol Xl 25 Mg Tb24 (Metoprolol succinate) ..... One tab daily Aspir-81 81 Mg Oral Tbec (Aspirin) ..... Once daily Clint Narayan MD Cardiology:On CPAP. Clint parker MD Cardiology Clint Narayan MD Cardiology:WILL SCHEDULE PATIENT FOR TITRATION STUDY. Clint Narayan MD Cardiology:HE IS KHADIJAH K IN AFIB PER EKG TODAY. CONTINUES ON COUMADIN. S LEEP STUDY SHOWED MILD YENNIFER WITH MILD DESATURATION. WILL SCHEDULE PATIENT FOR TITRATION STUDY. O NCE PATIENT IS SET UP FOR CPAP THERAPY, WILL SET PT UP FOR REPEAT PETE/CARDIOVERSION. WILL PROBABLY PLACE HIM ON AMIODARONE THIS TIME. Clint Narayan MD Cardiology: B P today: 148/94 P rior BP: 177/102 (07/11/2015) Clint Narayan MD Cardiology: O rders: S NOMED-CT: [id number] Current Medications Documented ([facility]-[id number]) 9 9205 HIGH Complex (CPT-24872) S leep Study - split night (CPT-03146) S TR - Adenosine (88767) T EE - GC (*) B ASIC METABOLIC PANEL W/EGFR (64474) C BC (INCLUDES DIFF/PLT) (6399) Clint Narayan MD Cardiology: H is updated medication list for this problem includes: Lisinopril 10 Mg Tabs (Lisinopril) ..... One tab. daily Toprol Xl 25 Mg Tb24 (Metoprolol succinate) ..... One tab daily Aspir-81 81 Mg Oral Tbec (Aspirin) ..... Once daily Clint Narayan MD Cardiology: H is updated medication list for this problem includes: Coumadin 5 Mg Tabs (Warfarin sodium) ..... As directed Toprol Xl 25 Mg Tb24 (Metoprolol succinate) ..... One tab daily Aspir-81 81 Mg Oral Tbec (Aspirin) ..... Once daily Orders: E KG (CPT-65073) 9 9205 HIGH Complex (CPT-31717) Clint Narayan MD Cardiology Clint Narayan MD Date Name ZIO Holter Carotid Duplex Bilat eral Complete Echo MAGNESIUM CBC (INCLUDES DIFF/P LT) COMPREHENSIVE METABO LIC PANEL W/EGFR Cardioversion - GC PETE - GC Sleep Study Titratio n PROTHROMBIN TIME WIT H INR CBC (INCLUDES DIFF/P LT) BASIC METABOLIC PANE L W/EGFR PETE - STR - Adenosine Sleep Study - split night HISTORY OF PROCEDURES Procedure Date Procedure Name Provider Procedure Notes S tatus EKG Clint Narayan MD completed SNOMED-CT: 422067967 812316 Current Medications Documented Clint Narayan MD completed SNOMED-CT: 62021551 Physical Exam, Performed: Pulse Exam of Foot Clint Narayan MD completed EKG Clint Narayan MD completed SNOMED-CT: 434518147 427694 Current Medications Documented Clint Narayan MD completed EKG Clint Narayan MD completed SNOMED-CT: 513336889 898721 Current Medications Documented Clint Narayan MD completed [employer] Te[employer] et[employer] - Tech Jensen Lucas completed Mobile Cardiac Telem etry - Prof Jensen Lucas completed EKG Clint Narayan MD completed SNOMED-CT: 650712436 856122 Current Medications Documented Clint Narayan MD completed SNOMED-CT: 43528337 Physical Exam, Performed: Pulse Exam of Foot Clint Narayan MD completed EKG Clint Narayan MD completed SNOMED-CT: 302178182 207039 Current Medications Documented Clint Narayan MD completed Protime Clint Narayan MD completed Johnny West RN completed Protcaity Narayan MD completed Stress EKG Ernesto Nolasco MD completed Regadenoson, 4 units Clint carmona MD completed Cardiolite, 2 units Clint parker MD completed SPECT Images Chloe Jaquez MD complet ed EKG Clint Narayan MD completed SNOMED-CT: 068373500 180137 Current Medications Documented Clint Narayan MD completed
--- OUTSIDE RECORDS SUMMARY | 2024-07-26 06:46 | XMS_ITS | Continuity of Care Document ---
Author Organization [facility] Address [address] [place] [address] Phone Care Team Providers Care Lease Purchase Truck Driver Name Role Phone Madi Garcia Unavailable Unavailable Procedures Procedure Date Post-op Follow-up Visit Post-op Follow-up Visit Remove Cataract, Insert Lens Post-op Follow-up Visit IOLMaster-Professional Post-op Follow-up Visit Remove Cataract, Insert Lens Eye Exam, New Patient Echo Exam Of Eye Advance Directives Directive Yes / No Effective Date File Name No Information Encounters Encounter Description Practice Location Reason(s) For Visit Diagnoses Date Provider Providers Copied on Encounter [facility], [address] [place] [address] [address], [place], [place], [id number], tel:[phone] [facility] No Information [address] Barraza. [address] , [address], [place], [place], [facility], [place]. tel:[phone] [facility], [id number] [place] [address] [address], [place], [place], [address], [place] tel:[phone] [facility] No Information [address] Jose Barraza. [address] [facility] [address], [address], [place], [address], . tel:[phone] [facility], [address], [place], [place], [id number], [place] tel:[phone] [facility] No Information 8 Jose Edmerna. [address] [facility] [address] , [address], [place], [place], [facility], . tel:[phone] Referring Provider: Juan Jacobs OD, [address] [place], [address]. tel:[phone] [facility], [address], [place], [place], [id number], tel:[phone] [facility] No Information 8 Jose Edmerna. [address] , [address], [place], [place], [facility], . tel:[phone] Referring Provider: Juan Jacobs OD, [address] [place], [place], [facility]. tel:[phone] [facility], [address] [place] [address] [address], [place], [place], [address], [place] tel:[phone] [facility] No Information 8 Jose Barraza. [address] [facility] [address] , [address], [place], [place], [facility], [place]. tel:[phone] Referring Provider: Juan Jacobs OD, [address] [place], [address]. tel:[phone] [facility], [address], [place], [place], [address], [place] tel:[phone] [facility] No Information 8 Jose Edmerna. [address] [facility] , [address], [place], [place], [facility], [place]. tel:[phone] Referring Provider: Juan Jacobs OD, [address] [place], [address]. tel:[phone] [facility], [address], [place], [place], [id number], [place] tel:[phone] [facility] No Information [address] Jose Barraza. [address] [facility] , [address], [place], [address], [place]. tel:[phone] Referring Provider: Juan Jacobs OD, [address] [place], [address]. tel:[phone] Family History Family Member Type Diagnosis Age At Onset No Information Payers Payer name Insurance type Covered green party ID Authoriza tion(s) No Information Social History Type Description Quantity Date Captured Comments Sex Male Smoking Status No Information Chief Complaint And Reason For Visit No Information Reason For Referral Reason For Referral No Information History Of Present Illness Encounter Date Complaint History Of Prese nt Illness No Information Functional Status Date Functional Assessmen t No Information Instructions Date Instruction Additional Infor mation No Information Assessments Type Assessment Date No Information Patient Care Teams Name Effective Dates (start - stop) Status Members No Information
--- OUTSIDE RECORDS SUMMARY | 2024-07-26 06:46 | XMS_ITS | Referral Summary ---
Author Organization [facility] [address] Address [address] [place] [address] Care Team Providers Care Supervisor Respiratory Name Role Phone Tennille Merino Primary Care Pr ovider Encounters Date Type Department Care Team Description 06/07/2024 Telephone [facility] Medical Group Cardiology [address] [place] [address] Tj Leyva MD from Last 3 Months Allergies No known active allergies Medications levothyroxine sodium (TIROSINT) 75 mcg capsule Take 1 capsule (75 mcg total) by mouth blueprint duplicator before breakfast Active aspirin 81 mg enteric coated tablet Take 1 tablet (81 mg total) by mouth daily Active dilTIAZem XR 120 mg 24 hr capsule TAKE 1 CAPSULE BY MOUTH EVERY DAY 90 capsule 3 4 Active metoprolol XL (TOPROL-XL) 100 mg 24 hr tablet TAKE 1 TABLET BY MOUTH EVERY DAY 90 tablet 3 4 Active rivaroxaban (Xarelto) 20 mg tabletIndications :Longstanding persistent atrial fibrillation (CMS/HCC) (HCC) TAKE 1 TABLET (20 MG TOTAL) BY MOUTH DAILY WITH BREAKFAST 30 tablet 5 4 Active Active Problems Problem Noted Date Diagnosed Date Hypothyroidism 01/04/2023 Pulmonary HTN 01/04/2023 Tobacco abuse 01/04/2023 Abnormal stress test 07/10/2021 Other chest pain 07/10/2021 Chronic fatigue 07/10/2021 Essential hypertension 12/17/2017 Chronic anticoagulation 12/17/2017 Atrial fibrillation (CMS/HCC) 12/17/2017 Bifascicular block 12/17/2017 YENNIFER (obstructive sleep apnea) 12/17/2017 Class 2 obesity due to exces s calories without serious comorbidity with body mass index (BMI) of 35.0 to 35.9 in adult 12/17/2017 Social History Tobacco Use Types Packs/Day Years Used Date Smoking Tobacco: Some Days Smokeless Tobacco: Never Comments:3-4 cigarettes per day Alcohol Use Standard Drinks/Week Comments No 0 (1 standard drink = 0.6 oz pur e alcohol) Personal Safety Answer Date Recorded Getting School Help Needed Not on file 07/21 Sex and Gender Information Value Date Recorded Sex Assigned at Not on file Legal Sex Male 1:36 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 Gender Identity Not on file Sexual Orientation Not on file Last Filed Vital Signs Vital Sign Reading Time Taken Comments Blood Pressure 122/86 02/11/2024 8:10 AM CDT Pulse 54 02/11/2024 8:10 AM CDT Temperature - - Respiratory Rate 16 02/11/2024 8:10 AM CDT Oxygen Saturation 98% 07/23/2023 8:15 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 Inhaled Oxygen Concentration - - Weight 110.7 kg (244 lb) 02/11/2024 8:10 AM CDT Height 182.9 cm (6') 02/11/2024 8:10 AM CDT Body Mass Index 33.09 02/11/2024 8:10 AM CDT Plan of Treatment Not on file Insurance MEDICARE [facility] MEDICARE [facility] Care Teams Supervisor Respiratory Relationship Specialty Start Date End Date Tennille Merino PA PCP - General Physician Cocoa Press Operator 10/07/18
--- OUTSIDE RECORDS SUMMARY | 2024-07-26 06:46 | XMS_ITS | Clinical Summary ---
Author Organization [facility] [address] Address [address] [place] [address] Care Team Providers Care Slot Ambassador Name Role Phone Tennille Merino Primary Care Pr ovider Allergies No known active allergies Medications levothyroxine sodium (TIROSINT) 75 mcg capsule Take 1 capsule (75 mcg total) by mouth flexible shaft winder before breakfast Active aspirin 81 mg enteric [...] of 35.0 to 35.9 in adult 12/17/2017 Encounters Date Type Department Care Team Description 06/07/2024 Telephone [facility] Medical Group Cardiology [address] [place] [address] Tj Leyva MD from Last 3 Months Surgical History Surgery Date Site/Laterality Comments APPENDECTOMY CHOLECYSTECTOMY Medical History Medical History Date Comments Obesity Seizure (HCC) Cataracts, bilateral Sleep apnea Hypertension Atrial fibrillation (CMS/HCC) (HCC) Family History Medical History Relation Name Comments No Known Problems Father No Known Problems Mother Relation Name Status Comments Father (Age 62) Mother (Age 80) Social History Tobacco Use Types Packs/Day Years [...] on file Legal Sex Male 1:36 AM SECTION CHIEF Gender Identity Not on file Sexual Orientation Not on file Obstetrics History Last Filed Vital Signs Vital Sign Reading Time Taken Comments Blood Pressure 122/86 02/11/2024 8:10 AM CDT Pulse 54 02/11/2024 8:10 AM CDT Temperature - - Respiratory Rate 16 02/11/2024 8:10 AM CDT Oxygen Saturation 98% 07/23/2023 8:15 AM SECTION CHIEF Inhaled Oxygen Concentration - - Weight 110.7 kg (244 lb) 02/11/2024 8:10 AM CDT Height 182.9 cm (6') 02/11/2024 8:10 AM CDT Body Mass Index 33.09 02/11/2024 8:10 AM CDT Plan of Treatment Health Maintenance Due Date Last Done Comments Depression Screening 1945 Fall Risk Assessment 1945 Hepatitis C Screening 1945 Pneumococcal vaccine 65+ (1 of 2 - PCV) 09/17/1953 DTaP/Tdap/Td Vaccine (1 - Tdap) 09/17/1958 Hepatitis B Screening 09/17/1965 Zoster Vaccine (1 of 2) 09/17/1997 Abdominal Aortic Aneurysm (AAA) Screen 09/17/2012 Well Visit 65+ 09/17/2012 Influenza Vaccine (#1) 2024 03/06/2020, [address] [facility] [address]IC[address] [facility] [place] [id number] Care Teams Slot Ambassador Relationship Specialty Start Date End Date Tennille Merino PA PCP - General Physician Painter Helper 10/07/18
== END 2024-07-26 06:43 | disposition home or self-care (01) ==
PROVIDERS: PCP Physician Assistant; Visit Provider Physician Assistant
DX: Z12.2 Encounter for screening for malignant neoplasm of respiratory organs (principal); F17.210 Nicotine dependence, cigarettes, uncomplicated
CPT/HCPCS: 71271

== ENCOUNTER 2024-08-22 09:36 | Outpatient (CLI) | payer MEDICARE, OTHER, SELFPAY ==
--- OUTSIDE RECORDS SUMMARY | 2024-08-22 10:36 | XMS_ITS | CONTINUITY OF CARE DOCUMENT ---
Author Name mookie damico Address Unknown Organization [facility] Address [address] [place] [address] Phone [phone] Care Team Providers Care Music Intern Name Role Phone Clint Narayan MD Unavailable SCHWIND STONECUTTER APPRENTICE HAND, CHRISTOPHER Unavailable SCHWIND STONECUTTER APPRENTICE HAND, CHRISTOPHER Unavailable PROBLEMS Condition Status Date Provider Notes Atrial fibrillation active Clint Narayan MD Atrial fib paroxysmal active Clint patel MD Sleep apnea active Clint Narayan MD Snoring active Clint Narayan MD HTN essential active Clint Narayan MD Leg weakness, bilateral active Roula baugh STONECUTTER APPRENTICE HAND ENCOUNTERS Date Type Provider Location Encounter Diag nosis - In-person encounter Office Visit Clint Narayan MD [facility] - In-person encounter Office Visit Clint Narayan MD [facility] Leg weakness, bilateral - In-person encounter Office Visit Clint Narayan MD [facility] - In-person encounter Office Visit Clint Narayan MD [facility] - In-person encounter Office Visit Clint Narayan MD [facility] - In-person encounter Office Visit Clint Narayan MD [facility] - In-person encounter Office Visit Clint Narayan MD [facility] Atrial fibrillationAtrial fib paroxysmalSleep apneaSnoringHTN essential [...] Sainz cecile blood pressure, diastolic 97 mm[Hg] De silvestre Geronimo blood pressure, systolic 155 mm[Hg] Esther petersonhernán Geronimo pulse rate 82 /min Elena Geronimo oxygen saturation, oximetry 95 % Elena Geronimo respiratory rate E&M 15 /min Elena Geronimo Body Mass Index (Ratio) 35.67 kg/m2 Deidre Geronimo weight E&M 263 [lb_av] Elena Geronimo blood pressure, diastolic 86 mm[Hg] De silvestre Oliveira blood pressure, systolic 132 mm[Hg] [...] Oliveira Body Mass Index (Ratio) 34.09 kg/m2 [facility] anil Oliveira height E&M 72 [in_i] Elena [...] Coverage type Sowmya martinez ID [employer] [id number] [place] MEDICARE Medicare [id number] ADVANCE DIRECTIVES Name Date DISCUSSED - NO [...] (Aspirin) ..... Once daily Orders: S NOMED-CT: [id number] Current Medications Documented (SCT-[id number]) E KG (CPT-58012) Clint Narayan MD Cardiology:May represent claudic ation. [...] (Aspirin) ..... Once daily Orders: E KG (CPT-00135) Clint Narayan MD Cardiology: H is updated [...] Narayan MD Cardiology: O rders: S NOMED-CT: [id number] Current Medications Documented ([facility]-[id number]) 9 9205 HIGH Complex (CPT-88272) S leep Study - split night (CPT-46349) S TR - Adenosine (18435) T EE - GC (*) B ASIC METABOLIC PANEL W/EGFR (00377) C BC (INCLUDES DIFF/PLT) (6399) Clint Narayan [...] (Aspirin) ..... Once daily Orders: E KG (CPT-86849) 9 9205 HIGH Complex (CPT-32398) Clint Narayan MD Cardiology Clint Narayan MD [...] tatus EKG Clint Narayan MD completed SNOMED-CT: 262316829 580315 Current Medications Documented Clint Narayan MD completed SNOMED-CT: 21440325 Physical Exam, Performed: Pulse Exam of Foot Clint Narayan MD completed EKG Clint Narayan MD completed SNOMED-CT: 676647266 524809 Current Medications Documented Clint Narayan MD completed EKG Clint Narayan MD completed SNOMED-CT: 419315529 695916 Current Medications Documented Clint Narayan MD completed Mobile Cardiac Telem etry - Tech Jensen Lucas completed Mobile Cardiac Telem etry - Prof Jensen Lucas completed EKG Clint Narayan MD completed SNOMED-CT: [id number] 829182 Current Medications Documented Clint Narayan MD completed SNOMED-CT: 13939167 Physical Exam, Performed: Pulse Exam of Foot Clint Narayan MD completed EKG Clint Narayan MD completed SNOMED-CT: 019696981 577733 Current Medications Documented Clint Narayan MD completed Protime Clint Narayan MD completed Johnny West RN completed Protcaity Narayan MD completed Stress EKG Ernesto Nolasco MD completed Regadenoson, 4 units Clint carmona MD completed Cardiolite, 2 units Clint parker MD completed SPECT Images Chloe Jaquez MD complet ed EKG Clint Narayan MD completed SNOMED-CT: [id number] 815711 Current Medications Documented Clint Narayan MD completed
--- OUTSIDE RECORDS SUMMARY | 2024-08-22 10:37 | XMS_ITS | Referral Summary ---
Author Organization [place] [address] [address] [place] [address] [address] [place] [address] Care Team Providers Care Shale Planer Operator Helper Name Role Phone Tennille Merino Primary Care Pr ovider Encounters Date Type Department Care Team Description 08/16/2024 1:45 PM TIRE MAKER Office Visit [facility] Medical Group Cardiology [address] [place] [address] [address] [place] [address] Garth Lopez MD Longstanding persistent atrial fibrillation (CMS/HCC) (HCC) (Primary Dx); Atrial fibrillation with slow ventricular response (CMS/HCC) (HCC); RBBB (right bundle branch block with left anterior fascicular block); Essential hypertension; History of GI bleed; Tobacco abuse 06/07/2024 Telephone [facility] Medical [facility] Cardiology [address] [place] [address] [address] [place] [address] Tj Leyva MD from Last 3 Months Allergies No known active allergies Medications levothyroxine sodium (TIROSINT) 75 mcg capsule Take 1 capsule (75 mcg total) by mouth rn burn before breakfast Active aspirin 81 mg enteric coated tablet Take 1 tablet (81 mg total) by mouth daily Active rivaroxaban (Xarelto) 20 mg tabletIndicatio ns:Longstanding persistent atrial fibrillation (CMS/HCC) (HCC) TAKE 1 TABLET (20 MG TOTAL) BY MOUTH DAILY WITH BREAKFAST 30 tablet 5 04/28/20 24 Active Additional Information Patient not taking.Reported on 08/16/2024 dilTIAZem CD/XR/XT (dilTIAZem XR) 120 mg 24 hr capsule Take 1 capsule (120 mg total) by mouth daily 90 capsule 1 08/08/19 Active metoprolol XL (TOPROL-XL) 25 mg extended release tablet Take 1 tablet (25 mg total) by mouth daily 30 tablet 11 08/16/19 25 2025 Active dilTIAZem XR 120 mg 24 hr capsule TAKE 1 CAPSULE BY MOUTH EVERY DAY 90 capsule 3 08/09/19 24 2024 Discontinued(R eorder) metoprolol XL (TOPROL-XL) 100 mg 24 hr tablet TAKE 1 TABLET BY MOUTH EVERY DAY 90 tablet 3 09/20/19 24 2024 Discontinued metoprolol XL (TOPROL-XL) 25 mg extended release tablet Take 2 tablets (50 mg total) by mouth daily 30 tablet 08/16/19 25 2024 Discontinued(A lternate therapy) Active Problems Problem Noted Date Diagnosed Date [...] drink = 0.6 oz pur e alcohol) Sex and Gender Information Value Date Recorded Sex Assigned at Not on file Legal Sex Male 1:36 AM TIRE MAKER Gender Identity Not on file Sexual Orientation Not on file Last Filed Vital Signs Vital Sign Reading Time Taken Comments Blood Pressure 122/70 08/16/2024 1:55 PM TIRE MAKER Pulse 40 08/16/2024 1:55 PM TIRE MAKER Temperature - - Respiratory Rate 16 02/11/2024 8:10 AM CDT Oxygen Saturation 99% 08/16/2024 1:55 PM TIRE MAKER Inhaled Oxygen Concentration - - Weight 105.2 kg (232 lb) 08/16/2024 1:55 PM TIRE MAKER Height 182.9 cm (6') 08/16/2024 1:55 PM TIRE MAKER Body Mass Index 31.46 08/16/2024 1:55 PM TIRE MAKER Plan of Treatment Not on file Procedures Procedure Name Priority Date/Time Associated Diagnosis Comments ELECTROCARDIOGRAM REPORT Routine 08/16/2024 Longstanding persistent atrial fibrillation (CMS/HCC) (HCC) from Last 3 Months Results * Electrocardiogram Report (08/16/2024) 08/16/2024 us Garth Lopez MD ECG ORDERABLES Final Result from Last 3 Months Insurance MEDICARE [employer] mentor | invest Address: [facility] [id number] [place] [address] [facility] MEDICARE [facility] Care Teams Shale Planer Operator Helper Relationship Specialty Start Date End Date Tennille Merino PA PCP - General Physician Swing Saw Operator 10/07/18"
--- OUTSIDE RECORDS SUMMARY | 2024-08-22 10:37 | XMS_ITS | Data Portability ---
Author Organization [facility] Address [address] [place] [address] Care Team Providers Care Merchandising Specialist Name Role Phone MARIE BENEDICT Primary Care [...] Lab HbA1c (hemoglob in A1c), blood 2023 025 [email or web address] [facility], Irene Martinez, [place], [address], 05/30/2024 09:43:51 BMP, serum or plasma 2023 025 [email or web address] [facility], Irene Martinez, [place], [address], 05/30/2024 09:43:51 CBC w/ auto diff 2023 025 [email or web address] [facility], Irene Martinez, [place], [address], 05/30/2024 09:43:51 hepatic function panel, serum 2023 025 [email or web address] [facility], [address], [place], [address], 05/30/2024 09:43:51 vitamin B12 + folate, serum or blood 2023 025 [email or web address] [facility], [address], [place], [address], 05/30/2024 09:43:51 TSH + free T4, serum 2023 025 [email or web address] [facility], [address], [place], [address], 05/30/2024 09:43:51 HbA1c (hemoglob in A1c), blood 2023 024 [email or web address] Not available 05/30/2024 09:08:59 PT/INR 2023 024 [email or web address] Not available 02/16/2024 10:06:47 PT/INR 2023 024 DONELL Not available 12/30/2023 13:13:23 PT/INR 2023 024 DONELL Not available 01/06/2024 13:26:01 PT/INR 2023 024 DONELL Not available 02/09/2024 14:25:30 PT/INR 2023 024 [email or web address] Not available 02/16/2024 10:07:00 PT/INR 2023 024 [email or web address] Not available 02/16/2024 10:07:05 BMP, serum or plasma 2023 024 [email or web address] Not available 05/30/2024 09:08:18 CBC w/ auto diff 2023 024 [email or web address] Not available 05/30/2024 09:08:28 hepatic function panel, serum 2023 024 [email or web address] Not available 05/30/2024 09:08:38 vitamin B12 + folate, serum or blood 2023 024 [email or web address] Not available 05/30/2024 09:08:47 TSH + free T4, serum 2023 024 [email or web address] Not available 05/30/2024 09:07:58 Referral None recorded. Procedures upper endoscopy procedure (EGD) (PROC) [address] [facility], [address], [address], [place], [address], 07/12/2024 14:22:39 Surgeries None recorded. Imaging LDCT, chest, for lung cancer screening 2023 [facility] (Imaging), [facility], [place], [address], 07/26/2024 08:35:42 Medication Orders None recorded. Patient TargetsNo targets recorded. Patient Instructions Encounter Date Encounter Id Patient Instructions Last Modified By Organization Details Last Modified Time 12/03/2023 [id number] A healthy lifestyle: care instructions Not available 12/23/2023 17:30:54 05/30/2024 [id number] A healthy lifestyle: care instructions Not available 05/30/2024 09:43:51 Reason for Referral None Reported. Results Created Date Observation Date Name Description Value Unit Range Abnormal Flag Note LastModifiedBy Organization Detail LastModifiedTime 07/26/1907/26/2024 LDCT, chest , for lung cance r sami terrell No observ ation record ed. [facility] [address] [facility] [address], [place], [address], 07/31/2024 16:26:10 Result Notes None recorded. Problems Name Problem SNOMED Code Status Onset Date Resolution Date Notes Provider Name and Address Organization Details Recorded Time Blood coagulation disorder 15792150 Active 2023 Ellen Strauss null, [place] - [facility] 4 10:51:57 Hypothyroid ism 10035050 Active 2023 [place] Stra[place] [facility] 4 10:07:14 Obstructive sleep apnea syndrome 49611944 Active 2023 Ellen Stra[place] [facility] 4 10:07:21 Benign essential hypertensio n 5487816 Active 2023 [place] Stra[place] [facility] 4 10:07:28 Chronic atrial fibrillatio n 347004385 Active 2023 Ellen Stra[place] [facility] 4 10:07:38 Pulmonary emphysema 01648788 Active 2023 [place] Stra[place] [facility] 4 10:07:47 Impaired glucose tolerance 1830060 Active 2023 [place] Stra[place] [facility] 4 10:07:55 Hyperglycem ia 27890494 Active 2023 [place] Stra[place] [facility] 4 10:08:02 Aortic aneurysm screening abnormal 194372369 Active 2022 Ellen Stra[place] [facility] 4 10:08:54 Anticoagula nt therapy Active 2023 [place] [facility] 4 10:09:08 Kidney lesion 0867084058042 0 Active 2023 [place] [facility] 4 10:09:24 Long-term current use of anticoagula nt 873690201 Active 2023 BRITTANY Barclay Attn: Kevin chand,[address] [place], [address], [place] - [facility] 4 10:17:44 Long-term drug therapy Active 2023 BRITTANY Barclay Attn: Kevin chand,[address] [facility], [place], [address], [place] [facility] 4 10:17:45 Body mass index 30+ - obesity 666814103 Active 2023 BRITTANY Barclay Attn: Kevin chand,[address] [facility], [place], [address], [place] - [facility] 4 17:30:49 Obesity 042959611 Active 2023 BRITTANY Barclay Attn: Kevin chand,[address] [facility], [place], [address], [place] - [facility] 4 17:30:50 Tobacco user 806190537 Active 2023 BRITTANY Barclay Attn: Kevin chand,[address] [facility], [place], [address], [place] - [facility] 09:19:10 Problem Notes None recorded. Procedures Surgical History Date Name Laterality Status Provider Name and Address Organization Details Recorded Time 01/01/20 23 [facility]/27/2023 10:14:30 05/14/20 08 colonoscopy completed Ellen [facility] - [facility] 09/27/2023 10:12:13 06/21/18 98 Cholecystectomy completed Ellen [facility] - [facility] 09/27/2023 10:12:26 06/21/18 56 Appendectomy completed Ellen [facility] - [facility] 09/27/2023 10:12:36 Imaging Results Imaging Date Name Status LastModified by Organiz ation Details LastModified Time 07/26/2024 LDCT, chest, for lung cancer screening completed [facility] [address], [place], [address], 07/31/2024 16:26:10 Procedure Notes None recorded. Medical Equipment None [...] TABLET BY MOUTH EVERY DAY DIRECTED 02/[address] Leyva stopped 01/2024 Not Available Not Available Not Available levothyro xine 75 mcg tablet Take 1 tablet every day by oral route for 90 days. active Not Available Not Available No t Available warfarin 5 mg tablet TAKE ONE TABLET BY MOUTH ONCE DAILY OR DIRECTED BASED ON INR READING 02/[address] Leyva stopped 01/2024 Not Available Not Available [...] Address Organization Details Last Updated DateTime 4 015303. 31 g 34.4 kg/m2 182.88 cm 97 % 97 % 55 /min 132 mm[Hg] 66 mm[Hg] Rima Marie MA [facility] 09:43:38 Date Recorded Respiratory rate Systolic blood pressure Diastolic blood pressure Provider Name and Address Organization Details Last Updated DateTime 12/03/2023 16 /min 114 mm[Hg] 80 mm[Hg] BRITTANY Barclay Attn: Accounting, [address] [facility], [place], [address], [facility] 12/03/2023 10:11:32 Date Recorded Body height Body mass index (BMI) Body weight Respiratory rate Oxygen saturation Oxygen saturation in Arterial blood by Pulse oximetry Heart rate Systolic blood pressure Diastolic blood pressure Provider Name and Address Organization Details Last Updated DateTime 4 182.88 cm 32 kg/m2 105634. 8 g 18 /min 99 % 99 % 55 /min 136 mm[Hg] 82 mm[Hg] Kenneth Cade MA [facility] 09:22:16 Date Recorded Systolic blood pressure Diastolic blood pressure Provider Name and Address Organization Details Last Updated DateTime 05/30/2024 128 mm[Hg] 80 mm[Hg] BRITTANY Barclay Attn: Accounting,[address] [facility], [place], [address], [facility] 05/30/2024 09:41:33 Social History Question Answer Notes LastModified by Organizat ion Details LastModified Time Tobacco Smoking Status Current Every Day Smoker Ellen Goodman h[place], [facility] 09/27/2023 10:10:36 Do You Have An Advance Directive? No Information n ot available 12/03/2023 What Is Your Level Of Alcohol Consumption? None [email or web address] Information not available 09/27/2023 Are You Blind Or Do You Have Difficulty Seeing? No Information n ot available 09/27/2023 What Is Your Level Of Caffeine Consumption? Moderate [email or web address] Information not available 09/27/2023 In The 14 Days Before Symptom Onset, Have You Had Close Contact With A Laboratory-confirm ed COVID-19 While That Case Was Ill? No [email or web address] Information n ot available 09/27/2023 In The 14 Days Before Symptom Onset, Have You Had Close Contact With A Person Who Is Under Investigation For COVID-19 While That Person Was Ill? No [email or web address] Information not available 09/27/2023 Have You Been To An Area Known To Be High Risk For COVID-19? No [email or web address] Information not available 09/27/2023 Are You Currently Employed? No [email or web address] Information not available 09/27/2023 Are You Deaf Or Do You Have Serious Difficulty Hearing? No [email or web address] Information not available 09/27/2023 What Type Of Diet Are You Following? REGULAR Information n ot available 09/27/2023 Are There Any Guns Present In Your Home? Yes [email or web address] Information not available 09/27/2023 What Was The Date Of Your Most Recent Tobacco Screening? 05/30/2024 Information not available 05/30/2024 What Is Your Current Pack Years? 20-29packyear s Information not available 05/30/2024 What Is Your Relationship Status? [email or web address] Information not available 09/27/2023 Do You Use Your Seat Belt Or Car Seat Routinely? Yes Information not available 09/27/2023 Do You Have Smoke And Carbon Monoxide Detectors In Your Home? Yes [email or web address] Information not available 09/27/2023 At What Age Did You Start Smoking Tobacco? 17 [email or web address] Information not available 09/27/2023 How Much Tobacco Do You Smoke? 0.25 PPD Information not available 09/27/2023 Do You Use Any Illicit Or Recreational Drugs? No [email or web address] Information not available 09/27/2023 Do You Use Sunscreen Routinely? No [email or web address] Information not available 09/27/2023 Has Tobacco Cessation Counseling Been Provided? Yes Information not available 12/03/2023 On What Date Was Tobacco Cessation Counseling Provided? 05/30/2024 Information not available 05/30/2024 Do You Or Have You Ever Used Any Other Forms Of Tobacco Or Nicotine? No [email or web address] Information not available 09/27/2023 Sex: Male Functional Status Question Answer Note LastModified by Organization D etails LastModified Time Are you able to care for yourself? Yes Information not available 09/27/2023 What is your exercise level? Moderate [email or web address] Information not available 09/27/2023 Mental Status None recorded. Family History Relationship Description Onset Age of this Age Resolved Age Notes LastModified by Organization Details LastModified Time Mother Cerebrovascu lar accident 80 [email or web address] Not available 10:09:42 Father Alcoholism 62 [email or web address] Not avail able 09/27/2023 10:09:55 Medical History Condition Response High Blood Pressure Y Atrial Fibrillation Y Blood Clots N Thyroid Problems Y Immunizations Vaccine Type Date Status Note Provider Nam e and Address Organization Details Recorded Time SARS-COV-2 (COVID-19) vaccine, UNSPECIFIED 2 completed Ellen [place], [place] [facility] 09/27/2023 10:06:05 SARS-COV-2 (COVID-19) vaccine, UNSPECIFIED 1 completed Ellen Strauss cuong, [facility] 09/27/2023 10:06:15 Pneumococcal conjugate PCV20, polysaccharide RKP399 conjugate, adjuvant, PF 2 completed Ellen Strauss cu[place], [place] - [facility] 09/27/2023 10:07:05 Past Encounters Encounter ID Performer Location Encounter Start Date Encounter Closed Date Diagnosis/Indication Diagnosis SNOMED-CT Code Diagnosis ICD10 Code Diagnosis Note [id number] BRITTANY Barclay [facility] [employer] [facility] - [place] [address] [place] [address] 12/03/2023 09:22:48 12/03/2023 12:04:15 Chronic atrial fibrillation 355470955 I48.20 on warfarin therapy. INR 2.5 . continue f/u with cardiology . Impaired g lucose tolerance 2771269 R73.09 a1c due in March. hx of IGT. Benign ess ential hypertension 4313776 I10 great bp control. stable on meds. Hypothyroidism 57005801 E03.9 stable on levothyrox ine 75mcg daily. due for labs in March again. Obstructiv e sleep apnea syndrome 26311689 G47.33 doesn't use cpap machine, hasn't used in years . Long-term current use of anticoagulant 719390966 Z79.01 standing orders for PT/INR ordered. Long-term drug therapy 690706820 Z79.899 next full lab panel due in March. Body mass index 30+ - obesity 040692250 Z68.34 discussed healthy diet, exercise, controllin g carbohydra elaina and added sugars in the diet Obesity 883996833 E66.8 [id number] BRITTANY Barclay [facility] [employer] [facility] - [place] [address] [place] [address] 05/30/2024 09:01:17 05/30/2024 10:14:08 Chronic atrial fibrillation 775174170 I48.20 on xarelto but he stopped it due to black stools x 5 days approx. Encouraged patient to immediatel y reach out to his cardiologi st so they can determine an alternate option for managing his atrial fibrillati on anticoagul ation. Benign ess ential hypertension 2588863 I10 great bp control. stable on meds. Hypothyroidism 12597657 E03.9 stable on levothyrox ine 75mcg daily. Labs are due in September Impaired g lucose tolerance 4949493 R73.09 hx of IGT. Repeat labs in September Obstructiv e sleep apnea syndrome 01740023 G47.33 doesn't use cpap machine, hasn't used in years . Long-term drug therapy 300193899 Z79.899 next full lab panel due in September Body mass index 30+ - obesity 504508365 Z68.34 discussed healthy diet, exercise, controllin g carbohydra elaina and added sugars in the diet Obesity 144906635 E66.9 Long-term current use of anticoagulant 599865114 Z79.01 Patient has been on Xarelto therapy but now has darker stools and stopped his Xarelto on his own. He needs to reach out promptly to Cardiology and he said he is going to go to their office today Tobacco user 825527496 Z 72.0 Refer for annual low-dose CT scan of the lungs Pulmonary emphysema 8743 3001 J43.9 Underlying history noted of emphysema, he is not taking any inhalers and feels that he is doing fine Melena 3052556 K92.1 Melena in the face of underlying anticoagul ation. He does not have any upper abdominal pain but there is concern for gastritis versus peptic ulcer disease. We will refer him for an EGD. Dr. Faustin was his previous GI that completed his colonoscop y in 2022. Nicotine dependence 5629 4008 F17.200 Tobacco de pendence caused by cigarettes 2799131777 7329461 F17.210 Health Concerns Section Related Observation LastModified by Organization Detai ls LastModified Time None Recorded Concern Status LastModified by Organization Details LastModified Time None Recorded Advance Directives Directive N: Payers Encounter Date Sequence Insurance Name Policy Number Policy Le Covered Member ID Le Member ID Guarantor Name 12/03/2023 1 [place] Andres Santiago [id number] Andres Santiago 05/30/2024 [place] [facility] Andres Santiago [id number] 4 Andres Santiago Notes Date Note Type [...] for labs. BRITTANY Barclay Attn: Accounting, [address] [facility], [place], [address], [facility] - [facility] 12/23/2023 17:31:09 05/30/20 24 text/ht ml Atrial FibrillationReported bypatient.Notes:pt follows routinely with cardiologyHypertensionReported bypatient.Notes:pt is taking diltiazem ER 120mg daily and metoprolol ER 100mg daily.Obstructive Sleep Apnea F/UReported bypatient.Notes:pt has underlying YENNIFER but unable to tolerate cpap machine.ThyroidReported bypatient.Notes:pt is taking levothyroxine 75mcg daily. due for labs. december 2022 colonoscopy ascending colon polyp with Dr. Earlyrrently patient reports he is having darker stools and he is on Xarelto and he read about how it can cause stomach bleeding so he stopped the medication on his own and he is going to be talking to Cardiology about other options. BRITTANY Barclay Attn: Accounting, [address] [facility], [place], [address], [place] - [facility] 06/12/2024 09:19:31
--- OUTSIDE RECORDS SUMMARY | 2024-08-22 10:37 | XMS_ITS | Continuity of Care Document ---
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 [address] [facility] , [address], [place], [place], [facility], [place]. tel:[phone] [facility], [address] [place] [address] [address], [place], [place], [address], [place] tel:[phone] [facility] No Information [address]raza. [address] [facility] [address], [address], [place], [address], . tel:[phone] [facility], [address], [place], [place], [address], [place] tel:[phone] [facility] No Information [address]. [address] [facility] , [address], [place], [place], [facility], . tel:[phone] Referring Provider: Juan Jacobs OD, [address] [place], [address]. tel:[phone] [facility], [address], [place], [place], [address], tel:[phone] [facility] No Information [address]. [address] [facility] , [address], [place], [place], [facility], . tel:[phone] Referring Provider: Juan Jacobs OD, [address] [place], [place], [facility]. tel:[phone] 2833 [facility], [address] [place] [address] [address], [place], [place], [id number], [place] tel:[phone] [facility] No Information 8 Jose Barraza. [address] [facility] , [address], [place], [facility], [place]. tel:[phone] Referring Provider: Juan Jacobs OD, [address] [place], [address]. tel:[phone] [facility], [address], [place], [place], [address], [place] tel:[phone] [facility] No Information 8 [address]. [address] [facility] , [address], [place], [place], [facility], [place]. tel:[phone] Referring Provider: Juan Jcaobs OD, [address] [place], [address]. tel:[phone] [facility], [address], [place], [place], [id number], [place] tel:[phone] [facility] No Information [address]. [address] [facility] , [address], [place], [address], [place]. tel:[phone] Referring Provider: Juan Jacobs OD, [address] [place], [address]. tel:[phone] Family History Family Member Type Diagnosis Age At Onset No Information Payers Payer name Insurance type Covered libertarian ID Authoriza tion(s) No Information Social History [...]
--- OUTSIDE RECORDS SUMMARY | 2024-08-22 10:37 | XMS_ITS | Clinical Summary ---
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 Active aspirin 81 mg enteric [...] by mouth daily 90 capsule 1 08/08/19 25 Active metoprolol XL (TOPROL-XL) 25 mg extended release tablet Take 1 tablet (25 mg total) by mouth daily 30 tablet 11 08/16/19 25 2025 Active dilTIAZem XR 120 mg 24 hr capsule TAKE 1 CAPSULE BY MOUTH EVERY DAY 90 capsule 3 08/09/19 24 2024 Discontinued(R eoteresa) metoprolol XL (TOPROL-XL) 100 mg 24 hr tablet TAKE 1 TABLET BY MOUTH EVERY DAY 90 tablet 3 09/20/19 24 2024 Discontinued metoprolol XL (TOPROL-XL) 25 mg extended release tablet Take 2 tablets (50 mg total) by mouth daily 30 tablet 11 08/16/19 25 2024 Discontinued(A lternate therapy) Active [...] Department Care Team Description 08/16/2024 1:45 PM MINING SPECULATOR Office Visit [facility] Cardiology [address] [place] [address] Garth Lopez MD Longstanding persistent atrial fibrillation (CMS/HCC) (HCC) (Primary Dx); Atrial fibrillation with slow ventricular response (CMS/HCC) (HCC); RBBB (right bundle branch block with left anterior fascicular block); Essential hypertension; History of GI bleed; Tobacco abuse 06/07/[address] [facility] Medical [facility] Cardiology [address] [place] [address] Tj Leyva MD from Last 3 [...] on file Legal Sex Male 1:36 AM MINING SPECULATOR Gender Identity Not on file Sexual Orientation Not on file Obstetrics History Last Filed Vital Signs Vital Sign Reading Time Taken Comments Blood Pressure 122/70 08/16/2024 1:55 PM MINING SPECULATOR Pulse 40 08/16/2024 1:55 PM MINING SPECULATOR Temperature - - Respiratory Rate 16 02/11/2024 8:10 AM CDT Oxygen Saturation 99% 08/16/2024 1:55 PM MINING SPECULATOR Inhaled Oxygen Concentration - - Weight 105.2 kg (232 lb) 08/16/2024 1:55 PM MINING SPECULATOR Height 182.9 cm (6') 08/16/2024 1:55 PM MINING SPECULATOR Body Mass Index 31.46 08/16/2024 1:55 PM MINING SPECULATOR Plan of Treatment Health Maintenance Due Date Last Done Comments Depression Screening 1945 Fall Risk Assessment 1945 Hepatitis C Screening 1945 DTaP/Tdap/Td Vaccine (1 - Tdap) 09/17/1958 Hepatitis B Screening 09/17/1965 Pneumococcal vaccine 65+ (1 of 2 - PCV) 09/17/1966 Zoster Vaccine (1 of 2) 09/17/1997 Abdominal Aortic Aneurysm (AAA) Screen 09/17/2012 Well Visit 65+ 09/17/2012 Influenza Vaccine (#1) 2024 03/06/2020, 2019 Procedures Procedure Name Priority Date/Time Associated Diagnosis Comments ELECTROCARDIOGRAM REPORT Routine 08/16/2024 Longstanding persistent atrial fibrillation (CMS/HCC) (HCC) from Last 3 Months Results * Electrocardiogram Report (08/16/2024) 08/16/2024 Garth Lopez MD ECG ORDERABLES Final Result from Last 3 Months Insurance MEDICARE [employer]ICARE [employer] Care Teams Wrapper Sizer Relationship Specialty Start Date End Date Tennille Merino PA 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
== END 2024-08-22 09:37 | disposition home or self-care (01) ==
LOC: CHSLAB 09:39
PROVIDERS: PCP Physician Assistant; Visit Provider Specialist
DX: L89.129 Pressure ulcer of left upper back, unspecified stage (principal)
CPT/HCPCS: 88305

== ENCOUNTER 2024-12-13 08:45 | Outpatient (CLI) | payer MEDICARE, OTHER, SELFPAY ==
--- NOTE | ~2024-12-13 | US_ITS ---
EXAM: US right upper quadrant12/13/2024 8:49 CDT TECHNIQUE: Ultrasound of the right upper quadrant of the abdomen was performed. COMPARISONS: None available. FINDINGS: LIVER: Increased echogenicity, compatible with mild hepatic steatosis. . No discrete liver masses are noted. INTRAHEPATIC BILE DUCTS: Nondilated. COMMON BILE DUCT: 6 mm. Normal caliber. GALLBLADDER: The gallbladder is surgically absent. PANCREAS: Head and tail are obscured by overlying bowel gas. The visualized portions are normal. IMPRESSION: Mild hepatic steatosis. Reviewed, dictated and finalized at location A. IMPRESSION: Mild hepatic steatosis.
== END 2024-12-13 08:46 | disposition home or self-care (01) ==
LOC: MICIMG 08:46
PROVIDERS: PCP Physician Assistant; Visit Provider Physician Assistant
DX: K76.0 Fatty (change of) liver, not elsewhere classified (principal)
CPT/HCPCS: 76705